=== PATIENT | male | born 1945 | race Caucasian/White ===

== ENCOUNTER 2023-12-13 16:39 | Emergency (ER) | payer MEDICARE, OTHER, SELFPAY ==
[2023-12-13 16:41] VITALS: BP 165/74
--- NOTE | 2023-12-13 16:42 | ED.GENMED ---
ED Provider Triage
<Cathy Murphy PA-C - Last Filed: 12/13/23 16:47>
-
Patient seen by provider in Triage?: Seen in Triage
Attestation: A medical screening examination has been initiated by a qualified medical provider. Based on the assessment performed at this time, it has been determined that an emergent medical condition may exist and the patient has been informed
that further medical evaluation and possible additional diagnostic testing may be needed.
HPI: 72yoM here after a fall. Tripped and fell on concrete. Arrives with multiple abrasions and c/o L great toe pain. No head injury or LOC. No blood thinners. Tdap up to date.
GENERAL: Alert , in no apparent distress
EYE: No visual abnormalities.
NECK: Trachea midline
ENT: No visible abnormalities.
LUNGS: No acute respiratory distress
NEUROLOGICAL: Alert and oriented
SKIN: Skin intact. No visible changes.
MUSCULOSKELETAL: Moving extremities normally
PSYCH: Normal and appropriate interaction.
This is a medical evaluation conducted in person to initiate diagnostic evaluation and provide initial therapeutics. Please see further documentation by the treating clinician.
L foot and great toe x-rays ordered.
History of Present Illness
<Cathy Murphy PA-C - Last Filed: 12/13/23 16:47>
General
Chief Complaint: Fall
Time Seen by Provider: 12/13/23 17:31
<Isaac Barry Jr., PA-C - Last Filed: 12/13/23 18:44>
General
Source: patient and spouse
Exam Limitations: none
Nursing documentation reviewed up to this point in time: agreed with
History of Present Illness
History of Present Illness:
78-year-old male past medical history of heart disease hyperlipidemia hypertension presented to the emergency department after trip on concrete hitting his left toe and knees bilaterally as well as his left hand. Denies any loss of consciousness or
any head trauma. Not on blood thinners. denies numbness weakness or additional concerns
Past History
<Cathy Murphy PA-C - Last Filed: 12/13/23 16:47>
Past History
ED Past Medical History: HTN
ED Past Surgical History: Orthopedic (Left hip surgery)
Social History
Tobacco: Non-smoker
Alcohol: None
Drug: None
Personal:
Living: with family
Review of Systems
<Isaac Barry Jr., PA-C - Last Filed: 12/13/23 18:44>
Review of Systems
Allergies reviewed?: Yes
All Other Systems: ROS reviewed and negative except as documented in HPI and ROS
Phy Exam
<Isaac Barry Jr., PA-C - Last Filed: 12/13/23 18:44>
Physical Exam
Physical Exam:
GENERAL: Alert , in no apparent distress
EYE: pupils equal and reactive
NECK: Supple, no significant adenopathy.
ENT: o/p clr, mmm.
CARDIAC: Regular rate and rhythm .
LUNGS: Clear breath sounds bilaterally, no acute respiratory distress, no wheezes/rales/rhonchi
ABDOMEN: Soft, without focal tenderness, no r/g, no cvat
NEUROLOGICAL: Alert and oriented, no focal neuro deficits
SKIN: Warm and dry, skin intact.
MUSCULOSKELETAL: Swelling discomfort to the left second toe superficial abrasions to the knees bilaterally as well as the left hand but otherwise good range of motion and strength no bony tenderness, well perfused.
PSYCH: Normal and appropriate interaction.
Course
<Cathy Murphy PA-C - Last Filed: 12/13/23 16:47>
Orders/Labs/Results
Orders:
Orders
12/13/23 16:45
CR Foot - Left Min 3 Views Urgent
Comment:
Reason For Exam: great toe pain
CR Toe(s) Min 2 Vw Left Urgent
Comment:
Reason For Exam: great toe pain
12/13/23 18:24
boot [Ortho Boot Left- Treatment] ONCE
Short or tall?: Short
12/13/23 18:25
Cephalexin Monohydrate [Keflex] 500 mg PO NOW STA
Tetanus/Diphth/Acelpertussis [Adacel] 0.5 ml IM .ONCE ONE
Vital Signs
Initial and Last Documented VS:
Initial Vital Signs
Temp Pulse Resp BP Pulse Ox
98.4 F 56 18 165/74 98
12/13/23 16:41 12/13/23 16:41 12/13/23 16:41 12/13/23 16:41 12/13/23 16:41
Last Documented Vital Signs
Temp Pulse Resp BP Pulse Ox
98.4 F 56 18 165/74 98
12/13/23 16:41 12/13/23 16:41 12/13/23 16:41 12/13/23 16:41 12/13/23 16:41
<Isaac Barry Jr., MAX - Last Filed: 12/13/23 18:44>
Orders/Labs/Results
Orders:
Orders
12/13/23 16:45
CR Foot - Left Min 3 Views Urgent
Comment:
Reason For Exam: great toe pain
CR Toe(s) Min 2 Vw Left Urgent
Comment:
Reason For Exam: great toe pain
12/13/23 18:24
boot [Ortho Boot Left- Treatment] ONCE
Short or tall?: Short
12/13/23 18:25
Cephalexin Monohydrate [Keflex] 500 mg PO NOW STA
Tetanus/Diphth/Acelpertussis [Adacel] 0.5 ml IM .ONCE ONE
Vital Signs
Initial and Last Documented VS:
Initial Vital Signs
Temp Pulse Resp BP Pulse Ox
98.4 F 56 18 165/74 98
12/13/23 16:41 12/13/23 16:41 12/13/23 16:41 12/13/23 16:41 12/13/23 16:41
Last Documented Vital Signs
Temp Pulse Resp BP Pulse Ox
98.4 F 56 18 165/74 98
12/13/23 16:41 12/13/23 16:41 12/13/23 16:41 12/13/23 16:41 12/13/23 16:41
<Isaac Barry Jr., PA-C - Last Filed: 12/13/23 18:44>
MDM/Problems Addressed
MDM/Problems Addressed:
78-year-old male presenting to the emergency department after mechanical fall. Patient was found to have a broken great toe on the left side this was leah taped and was given a [place] shoe and advised for close outpatient follow-up. Otherwise
he had multiple abrasions was given a tetanus shot as well as prophylactic antibiotics and areas were cleaned thoroughly and bandaged. Otherwise stable for outpatient management return precautions given.
<Isaac Barry Jr., PA-C - Last Filed: 12/13/23 18:44>
*Critical Care Note
Total Time (30-74mins, 75-104mins- exclusive of procedures): Not Applicable
ED Attending Note
<Cathy Murphy PA-C - Last Filed: 12/13/23 16:47>
-
Portions of this chart may have been created with voice recognition software.� Occasional wrong word or��sound alike� substitutions may have occurred due to the inherent limitations of voice recognition software.
Discharge Plan
Departure
Patient Disposition: Home (Routine Discharge)
Date of Disposition: 12/13/23
Time of Disposition: 18:42
Patient with high blood pressure during this ER visit?: No
Condition: Good
Covid-19: Not Applicable
Discharge Problem:
Fracture of toe, Superficial abrasion
Instructions: Toe Fracture ED
Prescriptions:
New
cephalexin 500 mg capsule
500 mg PO TID 3 Days Qty: 9 0RF
No Action
Aspirin Low (Enteric Coated):
81 mg PO DAILY
Atorvastatin
40 mg PO DAILY
Carvedilol
3.125 mg PO BID
Valsartan
40 mg PO DAILY
Referrals:
Floyd Quach CRNP [Family Provider] -
Domo Alvares DPM [Specified Professional Personl] - Follow up in 5-7 days
Activity Restrictions/Additional Instructions:
You came to the emergency department today with concerns after a fall. You are found to have a broken toe please wear the boot and follow-up closely with the foot doctor. Otherwise keep the areas of abrasion cleaned. Return to the emergency
department any worsening, new or concerning symptoms. Please take the prophylactic antibiotics as well.
Interventions
Interventions:
*Risk Screen - Suicide Last Done: 12/13/23 16:41
*General Assessment Last Done: 12/13/23 16:41
*Neglect/Abuse Screening Last Done: 12/13/23 16:41
*ED COVID-19 Vaccine History Last Done: 12/13/23 16:41
ED-Musculoskeletal Assessment Last Done: 12/13/23 17:06
ED- Neurological Assessment Last Done: 12/13/23 17:06
ED-Skin Assessment Last Done: 12/13/23 17:06
Discharge Date and Time
Print Language: SYRIAC
[2023-12-13] MEDS: KEFLEX 500 MG PO (18:52)
[2023-12-13] MEDS: ADACEL 0.5 ML IM (18:54)
[2023-12-13 19:07] VITALS: BP 134/66
== END 2023-12-13 19:08 | disposition home or self-care (01) ==
LOC: EMR 16:39
PROVIDERS: EMERGENCY PHYSICIAN Emergency Medicine; FAMILY PHYSICIAN Nurse Practitioner Family
DX: M79.675 Pain in left toe(s) (principal); S92.415A Nondisplaced fracture of proximal phalanx of left great toe, initial encounter for closed fracture; S80.212A Abrasion, left knee, initial encounter; S80.211A Abrasion, right knee, initial encounter; W01.0XXA Fall on same level from slipping, tripping and stumbling without subsequent striking against object, initial encounter; Z23 Encounter for immunization; I10 Essential (primary) hypertension; E78.00 Pure hypercholesterolemia, unspecified
CPT/HCPCS: 99283; 90471; 73630; 73660; 90715

== ENCOUNTER → 2024-05-14 10:09 | Outpatient (REF) | payer MEDICARE, OTHER, SELFPAY ==
[2024-05-14 16:08] LABS: % Basophils 0.3 % (0-2); % Eosinophils 4.5 % (0-6); % Immature Granulocytes 0.3 % (0-0.5); % Lymphocytes 17.4 % (20.5-51.1); % Monocytes 6.6 % (1.7-9.3); % Neutrophils 70.9 % (42.2-75.2); Absolute Eosinophils 0.3 10^3/uL (0-0.7); Absolute Monocytes 0.4 10^3/uL (0.1-0.6); Absolute Neutrophils 4.1 10^3/uL (1.4-6.5); Hematocrit 47.5 % (39.0-52.0); Mean Corp Hgb Conc. 33.7 g/dL (33.0-37.0); Mean Corpuscular Hgb 32.2 pg (27.0-31.0); Mean Corpuscular Volume 95.6 fL (80.0-94.0); Mean Platelet Volume 11.8 fL (7.4-10.4); Nucleated Red Blood Cells % 0 % (-); Platelet Count 113 10^3/uL (130-400); Red Blood Cell Count 4.97 10^6/uL (4.70-6.10); Red Cell Dist. Width 13.2 % (11.5-14.5); White Blood Cell Count 5.8 10^3/uL (4.8-10.8)
[2024-05-14 16:10] LABS: ALT (SGPT) 23 U/L (0-50); AST (SGOT) 23 U/L (17-59); Alkaline Phosphatase 90 U/L (38-126); Blood Urea Nitrogen 21 mg/dl (9-20); Calcium 9.2 mg/dl (8.4-10.2); Carbon Dioxide 25 mmol/L (22-30); Chloride 107 mmol/L (98-107); Glucose 115 mg/dl (70-99); Potassium 4.6 mmol/L (3.5-5.1); Sodium 139 mmol/L (135-145); Total Bilirubin 1.1 mg/dl (0.2-1.3); Total Protein 6.3 g/dl (6.3-8.2); eGFR > 60.00
[2024-05-14 16:14] LABS: Urine Albumin Negative (Neg - Trace); Urine Bilirubin Negative (Negative); Urine Character Clear (Clear); Urine Color Yellow; Urine Glucose Negative (Negative); Urine Ketone Negative (Negative); Urine Leukocyte Negative (Negative); Urine Nitrite Negative (Negative); Urine Occult Blood 1+ (Negative); Urine Specific Gravity 1.015 (<1.030); Urine Urobilinogen Negative (Neg - 1+)
[2024-05-14 16:27] LABS: Urine Red Blood Cell 0-2 /HPF (0-2); Urine Squamous Cell 0-2 /LPF (Few); Urine White Cell 0-2 /HPF (0-5)
[2024-05-14 16:59] LABS: Vitamin B12 533 pg/ml (239-931)
[2024-05-17 11:35] LABS: Lyme Antibody Screen, EIA Negative (Negative)
== END ==
LOC: HWLAB 10:09
PROVIDERS: ATTENDING PHYSICIAN Nurse Practitioner Family
DX: R41.3 Other amnesia (principal)
CPT/HCPCS: 36415; 80053; 81003; 81015; 82607; 84443; 85025; 86618

== ENCOUNTER → 2024-08-02 11:58 | Outpatient (REF) | payer MEDICARE, OTHER, SELFPAY ==
[2024-08-02 15:55] LABS: % Basophils 0.3 % (0-2); % Eosinophils 3.5 % (0-6); % Immature Granulocytes 0.4 % (0-0.5); % Lymphocytes 20.1 % (20.5-51.1); % Monocytes 7.4 % (1.7-9.3); % Neutrophils 68.3 % (42.2-75.2); Absolute Eosinophils 0.2 10^3/uL (0-0.7); Absolute Lymphocytes 1.4 10^3/uL (1.2-3.4); Absolute Monocytes 0.5 10^3/uL (0.1-0.6); Absolute Neutrophils 4.7 10^3/uL (1.4-6.5); Hematocrit 44.5 % (39.0-52.0); Hemoglobin 15.3 g/dL (13.0-18.0); Mean Corp Hgb Conc. 34.4 g/dL (33.0-37.0); Mean Corpuscular Hgb 32.6 pg (27.0-31.0); Mean Corpuscular Volume 94.7 fL (80.0-94.0); Mean Platelet Volume 11.2 fL (7.4-10.4); Nucleated Red Blood Cells % 0 % (-); Platelet Count 123 10^3/uL (130-400); Red Cell Dist. Width 12.8 % (11.5-14.5); White Blood Cell Count 6.9 10^3/uL (4.8-10.8)
[2024-08-02 16:10] LABS: ALT (SGPT) 20 U/L (0-50); AST (SGOT) 19 U/L (17-59); Albumin 4.3 g/dl (3.5-5.0); Alkaline Phosphatase 99 U/L (38-126); Blood Urea Nitrogen 33 mg/dl (9-20); Calcium 9.4 mg/dl (8.4-10.2); Carbon Dioxide 26 mmol/L (22-30); Chloride 111 mmol/L (98-107); Glucose 95 mg/dl (70-99); LDH 187 U/L (120-246); Potassium 4.3 mmol/L (3.5-5.1); Sodium 143 mmol/L (135-145); Total Bilirubin 0.8 mg/dl (0.2-1.3); Total Protein 6.4 g/dl (6.3-8.2); Uric Acid 5.6 mg/dl (3.5-8.5); eGFR > 60.00
== END ==
LOC: HWLAB 11:58
PROVIDERS: ATTENDING PHYSICIAN Internal Medicine; FAMILY PHYSICIAN Nurse Practitioner Family
DX: C83.18 Mantle cell lymphoma, lymph nodes of multiple sites (principal)
CPT/HCPCS: 36415; 80053; 83615; 84550; 85025

== ENCOUNTER → 2024-09-28 10:34 | Outpatient (REF) | payer MEDICARE, OTHER, SELFPAY ==
[2024-09-28 12:25] LABS: HDL Cholesterol 75 mg/dl; LDL Cholesterol, Calculated 69 mg/dl; Very Low Density Lipoprotein 13 mg/dl (0-30)
[2024-09-28 13:17] LABS: Glycohemoglobin (HgbA1c) 5.0 % (4.0-5.6)
[2024-09-28 15:04] LABS: Folate 7.4 ng/ml (2.76-20); Vitamin B12 589 pg/ml (239-931)
[2024-10-01 01:38] LABS: Arsenic, Blood <10.0 ug/L (<=12.0); Lead - Venous <2.0 ug/dL (<=3.4); Mercury, Blood <2.5 ug/L (<=10.0)
== END ==
LOC: REG 10:34
PROVIDERS: ATTENDING PHYSICIAN Nurse Practitioner Family; OTHER PHYSICIAN Psychiatry & Neurology Neurology
DX: R73.01 Impaired fasting glucose (principal); E78.00 Pure hypercholesterolemia, unspecified; R41.3 Other amnesia
CPT/HCPCS: 36415; 80061; 82175; 82607; 82746; 82784; 83036; 83521; 83655; 83825; 84155; 84165; 84425; 86255; 86334; 86618; 86780; 87389

== ENCOUNTER → 2024-12-24 07:28 | Outpatient (REF) | payer MEDICARE, OTHER, SELFPAY | LOC: HWRCS 07:28 | PROVIDERS: ATTENDING PHYSICIAN Internal Medicine Cardiovascular Disease; FAMILY PHYSICIAN Nurse Practitioner Family | DX: R06.02 Shortness of breath (principal) | CPT/HCPCS: 78452; 93017; A9500 ==

== ENCOUNTER → 2025-01-09 14:38 | Outpatient (REF) | payer MEDICARE, OTHER, SELFPAY | LOC: HWRCS 14:38 | PROVIDERS: ATTENDING PHYSICIAN Internal Medicine Cardiovascular Disease; FAMILY PHYSICIAN Nurse Practitioner Family | DX: I42.9 Cardiomyopathy, unspecified (principal) | CPT/HCPCS: 93306 ==

== ENCOUNTER 2025-01-29 09:00 | Day surgery (SDC) | payer MEDICARE, OTHER, SELFPAY ==
[2025-01-29] VITALS (17 sets, daily range): BP systolic 81–140; BP diastolic 46–111; BMI 27.5; BMI 26.5
[2025-01-29 09:40] LABS: Hematocrit 46.3 % (39.0-52.0); Hemoglobin 15.7 g/dL (13.0-18.0); Mean Corp Hgb Conc. 33.9 g/dL (33.0-37.0); Mean Corpuscular Volume 96.1 fL (80.0-94.0); Platelet Count 120 10^3/uL (130-400); Red Cell Dist. Width 12.5 % (11.5-14.5)
[2025-01-29 09:43] LABS: INR 1.14; PT 14.7 Sec (11.4-14.6)
[2025-01-29 09:44] LABS: APTT 31.0 Sec (23.4-35.0)
[2025-01-29 09:47] LABS: Blood Urea Nitrogen 23 mg/dl (9-20); Calcium 9.0 mg/dl (8.4-10.2); Carbon Dioxide 27 mmol/L (22-30); Chloride 106 mmol/L (98-107); Estimated Creatinine Clearance 63 ml/min; Glucose 103 mg/dl (70-99); Potassium 4.3 mmol/L (3.5-5.1); Sodium 139 mmol/L (135-145); eGFR > 60.00
[2025-01-29] MEDS: NSS 252 ML IV (10:08)
[2025-01-29] MEDS: LOW STRENGTH ASPIRIN 324 MG PO (10:09)
--- NOTE | 2025-01-29 14:07 | ITS.CL.CATH ---
Housekeeper Caregiver - Catheterization
Cardiac Catheterization
Procedure Report:
RIGHT AND LEFT HEART CATHETERIZATION
Date of Procedure: January 29, 2025
Referring: Dr. Kee Brownlee
PROCEDURES:
1. Right heart catheterization
2. Left heart catheterization with coronary and single-plane left ventriculography
INDICATION: This is a 79-year-old gentleman with a past medical history notable for an ischemic cardiomyopathy secondary to a chronically occluded mid right coronary artery. He has a history of mantle cell cancer and is chronically maintained on
Calquence. His daughter is an oncologist who works with [facility] and reports that his mantle cell tumor has been quite stable. The family has noted a decline in functional capacity and a stress study was notable for a fall in
LVEF
ACCESS: Right radial artery, 6 Fr sheath and right brachial vein, 5 Fr sheath
HEMODYNAMICS : (mmHg)
RA (m) : 5
RV (s/d,m) : 26/2, 7
PA (s/d, m) : 27/7, 15
PCWP (m) : 10
AO (s/d) : 117/55, 77
LV (s/d) : 127/4
LVEDP : 12
Cardiac Output : 4.8 L/min and cardiac Index : 2.4 L/min/m-2
Systemic vascular resistance: 15 Wood units or 1200 [id number]-[id number]-fq(-5)
Pulmonary vascular resistance: 1.0 Wood units or 80 [id number]-[id number]-xz(-5)
CORONARY FINDINGS
DOMINANCE: Right
LEFT MAIN: Shelflike 80% distal left main stenosis involving the origins of the LAD and circumflex
LEFT ANTERIOR DESCENDING: The LAD arises normally from the left main and runs in the anterior interventricular groove. The ostial LAD has a 50% stenosis. The LAD is moderately calcified and has minor irregularities over its course. The LAD
supplies a large first diagonal branch and medium caliber second diagonal branch which are widely patent
CIRCUMFLEX: The circumflex is a medium caliber nondominant vessel with an acute origin from the left main and 60% ostial stenosis
RIGHT CORONARY ARTERY: The right coronary artery is a dominant vessel that has been 100% occluded in its midportion since the last angiogram from 2009. The distal vessel fills via [id number]-xf-jlvdd collaterals.
VENTRICULOGRAPHY: Left ventriculography is performed in an [place] projection. The digital single-plane left ventricular ejection fraction is visually estimated at 30-35%. There is posterobasal to mid diaphragmatic severe hypokinesis and moderate
global hypokinesia
SEDATION: 47 minutes of procedural sedation was utilized. An independent medical insurance clerk was present to assist with and help manage the patient's level of consciousness and physiologic status.
RADIATION SUMMARY: Fluoro Time (min): 3.8, Dose (mGy): 416, DAP (Gy.cm2) : 28.1
Closure Device: TR band
CONCLUSIONS
1. Multivessel coronary artery disease with shelfllike 80% distal left main stenosis involving the origins of the LAD and circumflex and 100% chronically occluded mid RCA
2. Moderately reduced LV systolic function with an estimated ejection fraction of 30-35%
RECOMMENDATIONS
1. Consult CT surgery to consider coronary artery bypass grafting.
2. If the patient is not felt to be a surgical candidate then would consider Impella assisted high risk coronary intervention of the left [id number]
Copy to: Dr. Kee Brownlee
--- NOTE | 2025-01-29 15:00 | PTCARENOTE ---
since pt has been brought out to seed analysis laboratory assistant recovery radial chongunge after card cath his heart rate drops to 34 and then back up to 55. pt rhythm is nsr w PVC's . pt only complaint is grumbling in stomach . no light headedness , no dizziness. pt did
eat some crackers and drink gingerale . notified Gayle Hopkins TOOL MACHINIST reguarding heart rate. also pt has runs of bigeminy ,which Gayle Hopkins is also aware . and states as long as he is feeling well and asymptomatic continue plans for discharge.
--- NOTE | 2025-01-29 15:48 | PTCARENOTE ---
at 1521 pts bp continues to be low at 81/48. pt asymptomatic . pt laid flat in recliner. bolus of 500 cc of fluid given per jodee brown. no further treatment . pt bp back up to 119/53 at 1540
== END 2025-01-29 16:45 | disposition home or self-care (01) ==
LOC: CATH 09:00
PROVIDERS: ATTENDING PHYSICIAN Internal Medicine Interventional Cardiology; FAMILY PHYSICIAN Nurse Practitioner Family; OTHER PHYSICIAN Internal Medicine Cardiovascular Disease
DX: I25.10 Atherosclerotic heart disease of native coronary artery without angina pectoris (principal); I25.5 Ischemic cardiomyopathy; Z85.72 Personal history of non-Hodgkin lymphomas; I10 Essential (primary) hypertension; E78.00 Pure hypercholesterolemia, unspecified; Z79.82 Long term (current) use of aspirin; Z79.899 Other long term (current) drug therapy
CPT/HCPCS: 99152; 99153; 80048; 85027; 85610; 85730; 93460; C1769; C1894; Q9967

== ENCOUNTER → 2025-02-09 09:49 | Outpatient (REF) | payer MEDICARE, OTHER, SELFPAY | LOC: RAD 09:49 | PROVIDERS: ATTENDING PHYSICIAN Thoracic Surgery (Cardiothoracic Vascular Surgery); FAMILY PHYSICIAN Nurse Practitioner Family | DX: I25.10 Atherosclerotic heart disease of native coronary artery without angina pectoris (principal); I25.5 Ischemic cardiomyopathy | CPT/HCPCS: 71250 ==

== ENCOUNTER 2025-02-12 05:08 | Inpatient (IN) | payer MEDICARE, OTHER, SELFPAY ==
[2025-02-07 12:09] VITALS: BMI 28.2
[2025-02-07 13:00] LABS: Urine Character Clear (Clear)
[2025-02-07 13:04] LABS: Hematocrit 45.9 % (39.0-52.0); Hemoglobin 15.6 g/dL (13.0-18.0); Mean Corp Hgb Conc. 34.0 g/dL (33.0-37.0); Mean Corpuscular Volume 96.8 fL (80.0-94.0); Nucleated Red Blood Cells % 0 % (-); Platelet Count 134 10^3/uL (130-400); Red Cell Dist. Width 12.3 % (11.5-14.5)
[2025-02-07 13:08] LABS: INR 1.14; PT 14.4 Sec (11.4-14.6)
[2025-02-07 13:14] LABS: Urine White Cell 0-2 /HPF (0-5)
[2025-02-07 13:39] LABS: ALT (SGPT) 25 U/L (0-50); AST (SGOT) 24 U/L (17-59); Albumin 4.4 g/dl (3.5-5.0); Alkaline Phosphatase 73 U/L (38-126); Blood Urea Nitrogen 26 mg/dl (9-20); Calcium 9.4 mg/dl (8.4-10.2); Carbon Dioxide 27 mmol/L (22-30); Chloride 104 mmol/L (98-107); Estimated Creatinine Clearance 54 ml/min; Glucose 91 mg/dl (70-99); Potassium 4.6 mmol/L (3.5-5.1); Sodium 137 mmol/L (135-145); Total Protein 6.8 g/dl (6.3-8.2); eGFR > 60.00
[2025-02-07 14:08] LABS: Glycohemoglobin (HgbA1c) 5.1 % (4.0-5.9)
--- NOTE | 2025-02-07 16:00 | CM ---
spoke to pt in PAT's, we discussed preop CABG teaching including sternal and driving restrictions. he is prev indep, lives with his in a 2 story home with 3 steps to enter. he has the CT Surgery educ book, soap and instructions. he is agreeable
to a f/u visit from the ct transitional care nurse after dc. plan is for CABG 02/12, cm role explained and all questions answered.
[2025-02-12] VITALS (15 sets, daily range): BP systolic 86–118; BP diastolic 49–70; BMI 27.4
--- NOTE | 2025-02-12 06:26 | W.CVOR.SURPR ---
CVOR Surgeon Immed Pre Op
-
I have examined this patient prior to performance of the scheduled procedure.
The patient's condition is unchanged from the time of the dictated/written History and
Physical and the patient is able to undergo the scheduled procedure.
Low EF CABG + LAAE
[2025-02-12] MEDS: PROTONIX 40 MG PO (06:41)
[2025-02-12] MEDS: LOPRESSOR 25 MG PO (06:41)
[2025-02-12] MEDS: BACTROBAN 2% OINTMENT 1 APPLIC NASAL ×2 (06:41→20:04)
[2025-02-12] MEDS: MAGNESIUM OXIDE 400 MG PO (06:41)
[2025-02-12 07:59] LABS: ACT+ - POC 156 Seconds (82-134)
[2025-02-12 08:31] LABS: Urine Character Clear (Clear)
[2025-02-12 08:45] LABS: Urine White Cell 0-2 /HPF (0-5)
[2025-02-12 09:30] LABS: B.E. - POC -0.2 mmol/L; Glucose - POC 95 mg/dl (70-99); HCO3 - POC 25 mmol/L (21-28); Hematocrit - POC 40 % PCV (42-52); Hemodilution- POC Yes; Hemoglobin Calculated - POC 13.4; Ionized Calcium - POC 1.14 mmol/L (1.15-1.33); Lactate - POC 0.44 mmol/L (0.36-0.75); O2 Saturation %Calculated-POC 100.0 % (94-98); PCO2 - POC 40 mmHg (35-48); PO2 - POC 454 mmHg (83-108); Potassium - POC 4.0 mmol/L (3.5-5.1); Sodium - POC 143 mmol/L (136-145); Specimen Type - POC Arterial; pH - POC 7.40 (7.35-7.45)
[2025-02-12 09:43] LABS: ACT+ - POC > 1003 Seconds (82-134)
[2025-02-12 09:54] LABS: B.E. - POC 2.7 mmol/L; Glucose - POC 79 mg/dl (70-99); HCO3 - POC 26 mmol/L (21-28); Hematocrit - POC 31 % PCV (42-52); Hemodilution- POC Yes; Hemoglobin Calculated - POC 10.6; Ionized Calcium - POC 0.96 mmol/L (1.15-1.33); Lactate - POC 0.58 mmol/L (0.36-0.75); O2 Saturation %Calculated-POC 99.9 % (94-98); PCO2 - POC 33 mmHg (35-48); PO2 - POC 311 mmHg (83-108); POC Comment CPB; Potassium - POC 4.7 mmol/L (3.5-5.1); Sodium - POC 139 mmol/L (136-145); Specimen Type - POC Arterial; pH - POC 7.50 (7.35-7.45)
[2025-02-12 10:11] LABS: ACT+ - POC 891 Seconds (82-134)
[2025-02-12 10:17] LABS: B.E. - POC 3.0 mmol/L; Glucose - POC 92 mg/dl (70-99); HCO3 - POC 27 mmol/L (21-28); Hematocrit - POC 32 % PCV (42-52); Hemodilution- POC Yes; Hemoglobin Calculated - POC 10.9; Ionized Calcium - POC 1.05 mmol/L (1.15-1.33); Lactate - POC 0.73 mmol/L (0.36-0.75); O2 Saturation %Calculated-POC 99.9 % (94-98); PCO2 - POC 36 mmHg (35-48); PO2 - POC 315 mmHg (83-108); POC Comment CPB; Potassium - POC 4.7 mmol/L (3.5-5.1); Sodium - POC 140 mmol/L (136-145); Specimen Type - POC Arterial; pH - POC 7.48 (7.35-7.45)
--- NOTE | 2025-02-12 10:26 | CM ---
pt in OR today, cm to follow
[2025-02-12] MEDS: ANCEF 10 IV ×2 (10:35)
[2025-02-12 10:36] LABS: ACT+ - POC 977 Seconds (82-134)
[2025-02-12 10:37] LABS: B.E. - POC 2.0 mmol/L; Glucose - POC 108 mg/dl (70-99); HCO3 - POC 26 mmol/L (21-28); Hematocrit - POC 33 % PCV (42-52); Hemodilution- POC Yes; Hemoglobin Calculated - POC 11.4; Ionized Calcium - POC 1.05 mmol/L (1.15-1.33); Lactate - POC 0.95 mmol/L (0.36-0.75); O2 Saturation %Calculated-POC 99.9 % (94-98); PCO2 - POC 37 mmHg (35-48); PO2 - POC 316 mmHg (83-108); POC Comment WARM; Potassium - POC 4.9 mmol/L (3.5-5.1); Sodium - POC 141 mmol/L (136-145); Specimen Type - POC Arterial; pH - POC 7.46 (7.35-7.45)
[2025-02-12 10:43] LABS: ACT+ - POC 142 Seconds (82-134)
--- NOTE | 2025-02-12 11:21 | W.PN.CT.SURG ---
CT Surgery Operative Note
-
CARDIAC SURGERY OPERATIVE REPORT
Preoperative Diagnosis: Multivessel Coronary Artery Disease with low ejection fraction secondary to ischemic cardiomyopathy
Postoperative Diagnosis: Same
Procedure(s) Performed:
1. Standard Sternotomy with Aortic and Right Atrial Cannulation
2. Internal Mammary Artery Harvesting, Left
3. Coronary artery bypass grafting x 3 (In situ GUSMAN to LAD, Ao to RSVG to OM, Ao to RSVG to RPDA)
4. Endoscopic vein harvesting of right lower extremity
5. Transesophageal echocardiography
6. Placement of Temporary Ventricular Pacing Wires
7. Left atrial appendage exclusion [35 mm device, serial #[id number]]
8. Transonic Flowprobe assessment of all grafts
Date of Surgery: 02/12/2025
Comorbidities:
1. Multivessel coronary artery disease
2. Acute on chronic ischemic cardiomyopathy with EF of 30% with recent history of EF of 45%
3. Exertional angina equivalent
4. Hyperlipidemia
5. Hypertension
6. Mantle cell lymphoma on chronic suppressive therapy
7. Osteoarthritis
8. Mild cognitive disorder
Attending Surgeon: Min Bassett MD, MS
Assistants: Suraj Cline PA-C (present and necessary to ortho assistant, retraction, suction, exposure, suture management, and wound closure under my direction), Hellen Elkisn PA-C (endoscopic vein harvest and closure)
Anesthesiology: Lm Santana MD and Sophia Suazo CRNA
Scrub and Circulating RNs: Zo Tenorio, JOE, Patricia Manzo RN
Commercial Designer: Cassidy Rodriguez CCP
Anesthesia: GETA
EBL: per perfusion records
Products: None
CPB Time: 66 minutes
Aortic Cross Clamp Time: 51 minutes
Indication(s) for Procedures: This is a 79-year-old male with 2 as recently had a decline in his left ventricular ejection fraction on a cardiac stress test. He is very functional and very active for his age and has been experiencing worsening
anginal cloven type symptoms. Multidiscipline team discussion between interventional cardiology as well as his outpatient ager operator came to the conclusion that surgical revascularization of all territories would be best. He understands that
with his mantle cell lymphoma and his preoperative medications he is at slightly higher risk for bleeding and perioperative complications. Ultimately share decision making between the patient and his physicians was to move forward with surgical
intervention.
Conduit(s) Quality:
GUSMAN -excellent
RSVG -excellent, some portions of it were thin but overall decent caliber and quality
Target(s) Quality:
RCA/PDA -good, the smallest of the targets had a mean flow of approximately 30 cc a minute at a pressure 80 mmHg, Transonic flow probe assessment of the graft yielded a mean flow of 9 with with a pulsatility index of 5.8
OM -good, small vessel but overall had a mean flow of approximately 15 cc a minute at a pulsatility index of 2.1.
LAD -excellent, large size target coming a 2 mm probe, mean flow on assessment was 18 cc a minute with a pulse index of 4.0
Findings: His left ventricular ejection fraction preoperatively was 30% with global hypokinesis. He had of severely dilated left atrium with no significant mitral valve insufficiency, surprisingly. Following surgery his EF remained the same at 30
to 35% on 5 of Dobutrex. There were no new regional wall motion abnormalities. The GUSMAN was harvested in a skeletonized fashion. Following bypass grafting, test dose cardioplegia was given down each distal and confirmed patency and hemostasis.
Each graft was also interrogated with a transonic flow probe device. At the conclusion of the case he was in sinus rhythm in the 40s to 50s which was what he was at baseline. Did not require any blood products. And was on 5 of dobutamine for
preemptive support.
Description of Procedure: The patient was taken to the operating room. Their identity and procedure to be performed were verified and they were positioned supine on the operating table. Induction via general anesthesia with endotracheal intubation
was performed and central venous access and arterial monitoring were inserted. A preoperative transesophageal echocardiogram was performed to assess cardiac function and valvular function. The patient was then prepped and draped from chin to feet in
a sterile fashion. A preoperative time-out was performed with all members of the team present. A midline chest incision was performed along with median sternotomy. Simultaneous endoscopic access of the right lower extremity for saphenous vein
harvest was obtained along with administration of an initial 5,000 units of IV heparin. A RulTract sternal retractor was positioned to exposure the left internal mammary bed. The mammary was harvested and found to have good flow. A bulldog clamp was
applied to the distal end of the mammary after dividing it. It was wrapped in a papaverine soaked RayTec and replaced back into the left hemithorax. The RulTract was exchanged for a median sternal retractor. The innominate vein was isolated. Full
heparinization was given (a total of 50,000 units). We created a pericardial well. The aortic cannulation site was chosen where it was soft, pliable, and free of calcium. Cannulation was performed with an arterial cannula in the ascending aorta and
a triple-stage venous cannula through the right atrial appendage. The arterial cannula line had an appropriate bounce and correlating pressures with test dosing. Next, a root vent/antegrade cannula was inserted into the ascending aorta. The ACT was
confirmed to be over 400 and retrograde autologous priming was performed before commencing cardiopulmonary bypass. The pulmonary artery was away from the aorta to facilitate a clamp site. The aortic cross-clamp was placed after decreasing
the flow on the bypass and mean arterial pressure. A total of 1.2L initial dose of antegrade Del-Nido cardioplegia solution was given and planned for re-dosing every 75 minutes as necessary. There was rapid electro-mechanical arrest of the heart at
400 cc of cardioplegia. The left ventricle was observed for distention on echocardiogram and manual palpation. Cold slush was placed into a sponge and topically on the RV while we systemically cooled to 34 degrees centigrade. Once the heart was
fully arrested was rotated to medially and the left atrial appendage was sized to a 35mm device and clipped flush to the base.
I positioned the heart to expose the distal right coronary at the posterior descending artery. A pyramid lake blade was used to expose the coronary and perform the arteriotomy. Coronary De La Cruz scissors were used to enlarge the incision. The saphenous vein
was trimmed and beveled to an appropriate size. The distal anastomosis was performed using 7-0 prolene in an end-to-side fashion. Antegrade cardioplegia was administered into the graft. Appropriate hemostasis and flow were confirmed. The graft was
measured for length to the aorta and cut. A suitable site on the obtuse marginal was chosen. We dissected and prepared the distal target in a similar fashion. An end-to-side anastomosis was created with a 7-0 prolene. Antegrade cardioplegia was
administered into the graft. Appropriate hemostasis and flow were confirmed. The graft was measured for length to the aorta and cut. A suitable target on the mid/distal left anterior descending was identified. We dissected and prepared the distal
target in a similar fashion. We retrieved the GUSMAN from the chest and created a pericardial opening while being cognizant of the phrenic nerve to facilitate the course of the mammary. The distal end of the mammary was prepped. We verified
orientation and length of the NORA and found brisk flow. An jhmj-zs-gimr anastomosis was created with a 7-0 prolene. We temporarily released the bulldog clamp on the mammary to inspect flow. Perfusion to the LAD territory was visualized and
hemostasis was confirmed. The bull clamp was replaced on the mammary. The heart was filled and the root was distended with antegrade cardioplegia to make final assessment of graft length and orientation. We created 2 aortotomies using a #11 blade
then a 4.0mm aortic punch. The proximal anastomoses were created in an end-to-side fashion using 6-0 prolene. At the the same time, we re-warmed to 36.5 degrees centigrade. The bulldog clamp was removed from the mammary. Temporary bipolar
ventricular pacing wires were placed on the base of the right ventricle along with temporary atrial pacing wires as he had low left ventricular function. The patient was placed in a Trendelenburg position and flows on bypass were lowered. The aortic
cross clamp was removed and flows were slowly brought back up. All bypass grafts were inspected and were free from kinking or twisting. The distal and proximal anastomoses appeared hemostatic. Once transesophageal echocardiography appeared
satisfactory for de-airing, the flows were temporarily lowered for root vent removal. After verifying acceptable parameters, we initiated weaning from cardiopulmonary bypass. Once we were off cardiopulmonary bypass, the venous cannula was clamped
and removed. A test dose of protamine was administered and the patient was monitored for any adverse reaction before resuming protamine. Once half of the protamine dose was delivered, pump suckers were turned off and the systolic blood pressure was
lowered for aortic decannulation. The aortic cannula was removed and pursestrings were tied down. All cannulation sites were oversewn with a 4-0 prolene. The mammary bed was inspected and hemostasis was confirmed. Once the mediastinum was
hemostatic, 19Fr Sourav drain was placed in the left pleural cavity and two 24Fr Sourav drains were placed within the pericardium. The sternum was approximated with 4 #7 single and 3 #8 double stainless steel wires. Fascia was approximated with #1
vicryl suture. The subcutaneous, dermis and epidermis were closed in layers in a running fashion. The skin wound was cleansed and dressed.
All instrument, sponge, and needle counts were confirmed to be correct x 2 at the end of the operation. The patient was transferred to the cardiac intensive care unit in critical but stable condition.
I, Dr. Min Bassett, was present, scrubbed for, and performed all critical elements of this procedure.
Min Bassett MD, MS
Cardiothoracic Surgeon
[facility]
This operative dictation was created using the [employer] dictation system. Please excuse any grammatical, typographical, or 'sound alike' errors
[2025-02-12 11:22] LABS: ACT+ - POC > 1003 Seconds (82-134)
[2025-02-12 11:35] LABS: B.E. - POC -0.4 mmol/L; Glucose - POC 100 mg/dl (70-99); HCO3 - POC 25 mmol/L (21-28); Hematocrit - POC 32 % PCV (42-52); Hemodilution- POC Yes; Hemoglobin Calculated - POC 10.9; Ionized Calcium - POC 1.29 mmol/L (1.15-1.33); Lactate - POC 0.53 mmol/L (0.36-0.75); O2 Saturation %Calculated-POC 99.9 % (94-98); PCO2 - POC 42 mmHg (35-48); PO2 - POC 353 mmHg (83-108); POC Comment POST; Potassium - POC 4.2 mmol/L (3.5-5.1); Sodium - POC 142 mmol/L (136-145); Specimen Type - POC Arterial; pH - POC 7.38 (7.35-7.45)
[2025-02-12] MEDS: NEURONTIN PO ×2 (11:37→15:09)
[2025-02-12] MEDS: NSS 500 IV (11:38)
[2025-02-12] MEDS: ZOLOFT PO (11:38)
[2025-02-12 11:51] LABS: Glucose - Point of Care 106 mg/dl (70-99)
[2025-02-12 12:05] LABS: B.E. -1.1 mmol/L; HCO3 24.3 mmol/L (21-28); O2 Saturation % 98.8 % (94-98); PCO2 42 mmHg (35-48); PO2 103 mmHg (83-108); Potassium 4.1 mMOL/L (3.5-5.1); Sodium 135 mMOL/L (136-145)
--- NOTE | 2025-02-12 12:13 | W.PN.UPDATE ---
Update Note
Progress Note Update
79 year old with triple vessel coronary disease and mildly reduced EF (40-45%), was electively admitted for CABG
IV fluids: 2000
U.O.:� 500
Blood:� none (450 cell saver)
Wires:� A + V
Drips: Dobutamine @ 5, Cardene @ 2.5, Precedex 0.5, Insulin
�
NEURO: sedated, pupils +Xmm B/L
RESP: #8OT @24cm> 500/40%/14/5. Lungs clear B/L. 2 mediastinal (XXcc on arrival) and R/L pleural (XXcc on arrival) chest tubes to -20cm suction. Sanguineous drainage
CV: RRR +S1, S2, no S3, no�rub, no murmur. Dermabond to median sternotomy. RIJ w/[place] locked @ 38cm. PA 35/15; CVP 12; C.O 3.86/CI 1.98
ABD: round, soft, no BS
EXT: no edema, +2/4 DP pulses B/L, no femoral bruit, RLE CHRIS wrap intact; left radial A-line intact
: Crisostomo with clear yellow urine
�
A/P: POD #0 s/p CABG x x 3 (GUSMAN to LAD, SVG to OM, SVG to RPDA), Left atrial appendage exclusion [35 mm device]
LAZARUS: EF�30-35% on Dobutamine
- wean and extubate
- wean DTX/Cardene to maintain SBP 90-110mmHg
- insulin x 24h
# CAD
- will require ASA, plavix, statin (LIPITOR 80MG), beta-brown (COREG)
# Acute on chronic HFrEF (40% pre>30-35% post)
- may benefit from SGLT2i, ACEi vs ARB or Entresto
�
# acute surgical blood loss anemia-expected
- trend CBC
�
# Mantle cell lymphoma
- hold�Calquence�3-5 days post-op per primary oncologist
�
# Anxiety
- resume�Sertraline in am
# HTN
- HOME MEDS: Valsartan, Donepezil
[2025-02-12] MEDS: CALCIUM GLUCONATE 100 IV (12:23)
[2025-02-12 12:24] LABS: Hematocrit 39.8 % (39.0-52.0); Hemoglobin 13.6 g/dL (13.0-18.0)
[2025-02-12 12:25] LABS: Blood Urea Nitrogen 20 mg/dl (9-20); Estimated Creatinine Clearance 74 ml/min; Glucose 105 mg/dl (70-99); Magnesium 2.6 mg/dl (1.6-2.3)
[2025-02-12 12:28] LABS: INR 1.66; PT 19.8 Sec (11.4-14.6)
[2025-02-12 12:29] LABS: APTT 31.1 Sec (23.4-35.0)
[2025-02-12 12:42] LABS: Platelet Count 96 10^3/uL (130-400)
--- NOTE | 2025-02-12 12:51 | PTCARENOTE ---
Pt arrived from CV[facility] to CVICU at 1145. Pt intubated and sedated. Pt SR/SB with HR currently 60, pt with frequent PVCs. BP 102/48 MAP 65. PA 39/13, CVP 10, CO 3.86, CI 1.98, SVR 1450. Epicardial AV wires in place with rate set to 30. Core temp 96.3,
Reba hugger in place. #8ET in place at 24cm on the right. Vent set to SIMV 40% FiO2, rate 14, TV 500, PEEP 5, Pressure support 5. Pulse oximetry 98%. Oral care completed. Mediastinal chest tubes x2 and left pleural chest tube in place to -20
suction, no sign of air leak or crepitus, drainage red in color. Bowel sounds hypoactive. Crisostomo catheter in place draining yellow urine, Crisostomo care completed. Midsternal incision approximated and IT APPLICATION SUPPORT ANALYST, Right groin puncture approximated and IT APPLICATION SUPPORT ANALYST, Right
leg incision with bjorn wrap in place. Left radial Misti intact, Right IJ cordis in place with [place] at 55cm. Pt currently on Levo at 1mcg/min, Dobutamine 5mcg/kg/min, Insulin 2units/hr per glycemic protocol. Post-op EKG and x-ray obtained. Labs
collected and reviewed, iCal being replaced.
[2025-02-12 13:05] LABS: Glucose - Point of Care 109 mg/dl (70-99)
[2025-02-12] MEDS: TYLENOL PO (13:21)
[2025-02-12 14:06] LABS: Glucose - Point of Care 97 mg/dl (70-99)
[2025-02-12 15:05] LABS: Glucose - Point of Care 87 mg/dl (70-99)
[2025-02-12] MEDS: PACERONE PO (15:09)
[2025-02-12 16:12] LABS: Glucose - Point of Care 99 mg/dl (70-99)
[2025-02-12 16:15] LABS: B.E. - POC -2.6 mmol/L; Blood Urea Nitrogen - POC 19 mg/dl (3-120); Chloride - POC 111 mmol/L (96-111); Creatinine - POC 1.10 mg/dl (0.3-1.0); Glucose - POC 115 mg/dl (70-99); HCO3 - POC 23 mmol/L (21-28); Hematocrit - POC 40 % PCV (42-52); Hemodilution- POC No; Hemoglobin Calculated - POC 13.7; Ionized Calcium - POC 1.32 mmol/L (1.15-1.33); Lactate - POC 0.92 mmol/L (0.36-0.75); O2 Saturation %Calculated-POC 98.7 % (94-98); PCO2 - POC 40 mmHg (35-48); PO2 - POC 124 mmHg (83-108); Potassium - POC 4.2 mmol/L (3.5-5.1); Sodium - POC 141 mmol/L (136-145); Specimen Type - POC Arterial; pH - POC 7.36 (7.35-7.45)
--- NOTE | 2025-02-12 16:19 | PTCARENOTE ---
Pt awoke, able to follow commands. CPAP trial initiated at 1535. ABG collected and reviewed with CT DEVAUGHN, Consuelo. Pt extubated at 1615 to 6L nasal cannula. Pulse oximetry 99%. Pt able to state name and , achieving 1000 with IS. Pt remains SR/SB
with frequent PVCs. HR 62, BP 95/51 MAP 67, PA 28/11, CVP 8, CO 3.99, CI 2.05, SVR 1122. Pt off of both Levo and Cardene. Remains on Dobutamine at 5mcg/kg/min and Insulin per glycemic protocol.
--- NOTE | 2025-02-12 16:21 | CON.INTV ---
Consultation
Consultation Request
Date/Time Consultation Requested: 02/12/2025
Date/Time Consultation Performed: 02/12/2025
Medical History
-
Chief Complaint: Dyspnea with exertion
History of Present Illness:
Patient is a 79-year-old gentleman who reportedly was having some exertional dyspnea as outpatient. Workup included echocardiogram with noted decreased ejection fraction. Patient subsequently had a cardiac catheterization which was suggestive of
multivessel disease and left ventriculography showed decreased ejection fraction. Patient was subsequently referred to CT surgery service and coronary bypass surgery was advised. 02/12, patient was admitted to the hospital for coronary artery
bypass graft and postprocedure, was admitted to the CVICU. Art Instructor service was consulted for further input.
Past medical history. Coronary artery disease, hypertension, hyperlipidemia, heart failure with reduced ejection fraction, chronically occluded RCA, mantle cell lymphoma, osteoarthritis, mild cognitive deficit.
Surgical history. Bilateral hernia repair, cataract surgery, total hip replacement.
Family history. No known history of lung cancer.
Social history. Prior history of smoking, quit more than 10 years ago. Will get additional detail once patient is awake alert and able to communicate.
Allergies / Home Medications
Allergies
Allergy/AdvReac Type Severity Reaction Status Date / Time
lisinopril Allergy cough Verified 02/05/25 11:37
Home Medications
�Medication �Instructions �Recorded �Confirmed �Last Taken �Type
atorvastatin 80 mg tablet 80 mg PO HS High Cholesterol 01/28/25 02/12/25 02/11/25 21:00 History
carvedilol 3.125 mg tablet 3.125 mg PO BID Heart 01/28/25 02/12/25 02/11/25 09:00 History
Disease/Condition
valsartan 40 mg tablet 40 mg PO DAILY Blood Pressure 01/28/25 02/12/25 02/09/25 09:00 History
acalabrutinib maleate 100 mg 100 mg PO DAILY Cancer 01/29/25 02/12/25 02/04/25 09:00 History
tablet (Calquence (acalabrutinib
maleate))
acetaminophen 650 mg 650 - 1,300 mg PO Q12H PRN pain 01/29/25 02/12/25 Unknown History
tablet,extended release
cholecalciferol (vitamin D3) 25 25 mcg PO DAILY Supplement 01/29/25 02/12/25 02/04/25 09:00 History
mcg (1,000 unit) tablet (Vitamin
D3)
donepezil 10 mg tablet 10 mg PO HS Neurological Condition 01/29/25 02/12/25 02/11/25 21:00 History
zinc acetate 50 mg (zinc) capsule 50 mg PO HS Supplement 01/29/25 02/12/25 02/04/25 09:00 History
cetirizine 10 mg tablet (Zyrtec) 10 mg PO HS Allergies 02/05/25 02/12/25 02/11/25 21:00 History
mecobalamin (vitamin B12) 1,000 1,000 mcg PO HS Supplement 02/05/25 02/12/25 02/04/25 09:00 History
mcg chewable tablet (B12 Active)
sertraline 25 mg tablet 25 mg PO DAILY Mental 02/05/25 02/12/25 02/11/25 09:00 History
Health/Anxiety
thiamine HCl (vitamin B1) 1 tab PO DAILY Supplement 02/05/25 02/12/25 02/04/25 09:00 History
vitamin K2 1 tab PO DAILY Supplement 02/05/25 02/12/25 02/04/25 09:00 History
aspirin 81 mg tablet,delayed 81 mg PO DAILY Blood Clot 02/12/25 02/12/25 02/11/25 09:00 History
release Prevention/Tx
Review of Systems
-
Unable to Obtain full review of systems at this time due to: Patient Intubation
Vitals / Labs / Diagnostic Testing
Vital Signs
Temp Pulse Resp BP Pulse Ox
98.6 F 64 14 106/65 98
02/12/25 16:00 02/12/25 16:00 02/12/25 16:00 02/12/25 16:00 02/12/25 16:00
Lab Data
02/12/25 11:43
Laboratory Results
02/12/25
11:43
PT 19.8 H
INR 1.66
APTT 31.1
pH 7.37
pCO2 42
pO2 103
HCO3 24.3
O2 Delivery Level
Diagnostic Testing:
Physical Exam
-
HEENT: Normocephalic
Cardiovascular: S1/S2
Respiratory: Clear
GI: Soft and Non Distended
Neurology: Other (Starting to wake up, still drowsy.)
Skin: Warm
General: Comfortable
Assessment
-
Patient is a 79-year-old gentleman with coronary artery disease, s/p coronary artery bypass graft, left atrial appendage exclusion, POD # 0
Titrate off pressors per protocol, currently on dobutamine at 5, off Levophed. MAP of 68.
ECHO reviewed with mildly reduced ejection fraction
PA catheter readings reviewed, , mean 21
Management of chest tubes per primary service
Intubated/off sedation now, starting to wake up
Pain control
RASS goal of 0 to -1
Intubated for procedure, SBT trial when patient able to spontaneously breath
Current vent settings: SIMV with PS, 500/14/40%/5, pressure support of 5.
AB.37/42/103
CXR with possibly trace left apical pneumothorax and minor atelectasis.
Extubate per protocol
Maintain supplement oxygen as needed
No prior history of pulmonary disease
Prior PFTs reviewed, unremarkable
Can add nebulizers if needed
Aspiration precautions
Encouraged incentive spirometry, OOB/ambulation/early mobility
Advance diet as tolerated following extubation
GI prophylaxis: Protonix
Monitor critical I/O's
Crisostomo/chest tube output
Hb/platelets postoperatively, mild drift
Trend CBC for now
Can transfuse if indicated for Hb <7, plt <50 in surgical patients
DVT prophylaxis including SCDs
Insulin protocol initiated and ongoing
Transition to SQ/off as indicated per team
Other medical diagnoses:
- HFrEF, LVEF 30-35%
- Pulmonary nodules. 1-2 mm, RUL. Outpatient follow up with Pulmonary clinic, information added to discharge section.
- HTN, HLD
- H/o Smoking. Will get additional details once patient is awake and alert.
- Mantle cell lymphoma
- CAD
- Mild cognitive deficit
Critical Care time 65 mins -- The patient is admitted for acute critical illness for the treatment of vital organ failure and/or prevention of further life-threatening conditions. Total care includes time spent in review of history, physical exam,
medications, hemodynamic/ventilator parameters, laboratory data, imaging and discussion with house staff, pharmacy, respiratory therapy, food management aide, and nursing
Data:
Spirometry 01/2025: FEV1 2.70, 99% of predicted, FVC 105% predicted, FEV1/FVC of 70. Normal spirometry without evidence of obstruction or restriction.
LHC 01/2025: 1. Multivessel coronary artery disease with shelf llike 80% distal left main stenosis involving the origins of the LAD and circumflex and 100% chronically occluded mid RCA
2. Moderately reduced LV systolic function with an estimated ejection fraction of 30-35%
ECHO 12/2024: 1. Technically difficult study.
2. Normal left ventricular chamber size with mildly reduced left ventricular systolic function ejection fraction 40 to 45%. Basal to mid inferior and inferolateral akinesis.
3. Mild concentric left ventricular hypertrophy.
4. Mild mitral regurgitation.
5. Mild tricuspid regurgitation.
6. Compared to her previous echo from November 2015, EF was 50% at that time and there is now mild MR and TR.
CT Chest 01/2025: No acute pathology of the chest identified.
Severe atherosclerotic vascular disease. Mildly progressed.
Tiny solid right upper lobe pulmonary nodules. These are too small to be seen on prior PET/CT exam. The [facility] Pulmonary Nodule Advisory Board will be automatically informed of the findings.
--- NOTE | 2025-02-12 16:26 | RESPNOTE ---
16:15 extubated patient and placed on 6 liter nasal cannula
[2025-02-12 16:47] LABS: Hematocrit 42.1 % (39.0-52.0); Hemoglobin 14.4 g/dL (13.0-18.0); Platelet Count 118 10^3/uL (130-400)
[2025-02-12] MEDS: DILAUDID 0.5 MG IV (17:08)
[2025-02-12] MEDS: LOW STRENGTH ASPIRIN 81 MG PO (17:16)
[2025-02-12] MEDS: ANCEF 5 IV (17:40)
[2025-02-12 18:09] LABS: Glucose - Point of Care 105 mg/dl (70-99)
--- NOTE | 2025-02-12 18:12 | W.PN.CARDCBS ---
Today's Communication / Plan
-
Overall doing well status post CABG x 3.
Wean pressors and wean to extubate
With low EF will want to initiate GDMT for his cardiomyopathy
He has known first-degree AV block and bradycardia so we will need to watch for bradycardia. remains in sinus rhythm
Impression / Plan
-
Assess:
CAD/ischemic Cardiomyopathy EF 30-40%
s/p CABG 02/12/25, GUSMAN to LAD, saphenous vein graft to OM, saphenous vein graft to PDA, IRMA clip
Mantle cell lymphoma
Hypertension
Hyperlipidemia
Mild dementia
Echo 01/09/25:EF 40-45%, inf/inf lat akinesi, mild MR
Plan:
Overall doing well post procedure. Wean dobutamine and Levophed to off. Wean to extubate.
Remains in sinus rhythm. Continue aspirin and Plavix
Hemoglobin 14.4, platelet count 118
EKG with normal sinus rhythm and first-degree AV block.
Progress Note - Yoke Presser
Subjective
Date of Service: February 12, 2025
Intubated and sedated post procedure. Remains in sinus rhythm.
Objective
Labs:
02/12/25 16:13
02/12/25 11:43
Labs
Hgb 14.4 g/dL (13.0-18.0) 02/12/25 16:13
Hct 42.1 % (39.0-52.0) 02/12/25 16:13
Plt Count 118 10^3/uL (130-400) L D 02/12/25 16:13
PT 19.8 Sec (11.4-14.6) H 02/12/25 11:43
INR 1.66 02/12/25 11:43
APTT 31.1 Sec (23.4-35.0) 02/12/25 11:43
Sodium 137 mmol/L (135-145) 02/07/25 12:17
Potassium 4.6 mmol/L (3.5-5.1) 02/07/25 12:17
BUN 20 mg/dl (9-20) 02/12/25 11:43
Creatinine 0.8 mg/dL (0.7-1.3) 02/12/25 11:43
Glucose 105 mg/dl (70-99) H 02/12/25 11:43
Vital Signs and I&O:
Vital Signs
Temp Pulse Resp BP Pulse Ox
98.3 F 67 14 92/61 99
02/12/25 18:00 02/12/25 18:08 02/12/25 18:08 02/12/25 18:03 02/12/25 18:08
Vital Signs
Temp Pulse Resp BP Pulse Ox
98.3 F 67 14 92/61 99
02/12/25 18:00 02/12/25 18:08 02/12/25 18:08 02/12/25 18:03 02/12/25 18:08
Intake & Output
02/10/25 02/11/25 02/12/25 02/13/25
06:59 06:59 06:59 06:59
Intake Total 557.5 / 557.5
Output Total 960 / 960
Balance -402.5 / -402.5
Physical Exam
Physical Exam
GEN: No distress, on vent
HEENT: supple, anicteric, mmm, ET tube
LUNGS: scatt rhonchi
CV: Reg, S1/S2, 1/6 syst LSB, no rub
ABD: soft, BS+, NT/ND
EXT: No edema
NEURO: Gross non-focal
SKIN: sternotomy
[2025-02-12] MEDS: LR 250 ML IV ×2 (18:33→20:25)
[2025-02-12] MEDS: DILAUDID 0.25 MG IV (20:04)
[2025-02-12] MEDS: SENOKOT 8.6 MG PO (20:04)
[2025-02-12] MEDS: ROXICODONE 5 MG PO (20:05)
--- NOTE | 2025-02-12 20:30 | PTCARENOTE ---
Report received from JOE Corral. Walking rounds done. Pt awake,alert, calm. Speech clear. Oriented x 4. Pt on 4L/O2/NC. Sats 100%. BBS present. Diminished B anteriorly and B bases. CDB, IS encouraged. Pt in SR with multiple monomorphic PVCs. Gtts
include Dobutamine at 5 mcg/kg/min and Levophed at 1 mcg/min. Maintaining SBP 90-110 mmHG. A-line, PA and CVP waveforms with pulsatile ,waveforms. RIJ Page Yissel catheter at 55 cm. CI 1.98. Reported to FREIDA Sierra. LR 250 mls bolus given. Labs
drawn and sent. Pt with pericardial rub. CTs x 3, to -20 cm suction. Mediastinals x 2, L pleural x 1. Red drainage from each. Q1 hr CT output and prn recorded. AV wires. Pacing mode DDD, A-rate 35, mA 10, sens 0.4. V-rate 35, mA 10, sens 0.8. Normal
pulses to B radials, L DP. R DP weak. For wound assessments, see flowsheets. Belly soft, nontender. Hypoactive bs x 4. Crisostomo with clear, yellow urine. Q 1 hr output recorded. Glycemic protocol maintained.
Dilaudid 0.25 mg IV and Roxicodone 5 mg po given at ~ 2023. Ongoing plan of care.
[2025-02-12 20:52] LABS: Glucose - Point of Care 87 mg/dl (70-99)
[2025-02-12 20:54] LABS: B.E. -4.5 mmol/L; HCO3 21.1 mmol/L (21-28); O2 Saturation % 99.4 % (94-98); PCO2 40 mmHg (35-48); PO2 131 mmHg (83-108); Potassium 4.1 mMOL/L (3.5-5.1)
[2025-02-12 21:18] LABS: Magnesium 2.1 mg/dl (1.6-2.3)
[2025-02-12] MEDS: SODIUM BICARBONATE 50 MEQ IV (21:27)
--- NOTE | 2025-02-12 21:30 | PTCARENOTE ---
Dobutamine gtt decreased to 4 mcg/kg/min per provider order. Sodium Bicarb 50 meQ IV given per order. Will recheck labs and CI at 2300 per order.
[2025-02-12 21:41] LABS: Glucose - Point of Care 84 mg/dl (70-99)
[2025-02-12] MEDS: ZOFRAN 4 MG IV (22:52)
[2025-02-12 23:01] LABS: Glucose - Point of Care 93 mg/dl (70-99)
[2025-02-12 23:40] LABS: Glucose - Point of Care 87 mg/dl (70-99)
[2025-02-12 23:45] LABS: B.E. -4.5 mmol/L; HCO3 21.1 mmol/L (21-28); O2 Saturation % 99.6 % (94-98); PCO2 40 mmHg (35-48); PO2 132 mmHg (83-108); Potassium 4.3 mMOL/L (3.5-5.1)
[2025-02-13] VITALS (14 sets, daily range): BP systolic 98–135; BP diastolic 47–74; PULSE 102; O2SAT 96–98; BMI 28.1
[2025-02-13] MEDS: CALCIUM GLUCONATE 100 IV ×2 (00:31→21:20)
[2025-02-13] MEDS: SODIUM BICARBONATE 50 MEQ IV (00:31)
[2025-02-13] MEDS: TYLENOL 975 MG PO ×4 (00:32→22:05)
[2025-02-13] MEDS: NEURONTIN 100 MG PO ×4 (00:32→22:06)
[2025-02-13] MEDS: LIPITOR 80 MG PO ×2 (00:32→22:05)
[2025-02-13 00:58] LABS: Glucose - Point of Care 95 mg/dl (70-99)
--- NOTE | 2025-02-13 01:30 | PTCARENOTE ---
Lab results seen by PA. Ca Gluconate 2 GM IV given per order. Sodium Bicarbonate 50 meQ IV given per order. Repeat CI at 2316 is 2.76. Dobutamine gtt decreased to 3 mcg/kg/min. Pt with nausea, attempting to vomit. Zofran 4 mg IV given at 2252.
Pt repositioned in bed. Pt with sustained, elevated BP. Cardene gtt started per protocol at 0100 at 2.5 mg/hr. Goal BP 90-110 mm HG. PA states she will accept SBP < 120 mmHG ( and greater than/equal to 90 mmHG). Will obtain lab work and CI at ~ 0200.
[2025-02-13] MEDS: ANCEF 5 IV ×2 (02:30→10:01)
[2025-02-13 02:55] LABS: Glucose - Point of Care 98 mg/dl (70-99)
[2025-02-13 03:23] LABS: B.E. -2.0 mmol/L; HCO3 23.7 mmol/L (21-28); O2 Saturation % 99.4 % (94-98); PCO2 43 mmHg (35-48); PO2 115 mmHg (83-108); Potassium 4.2 mMOL/L (3.5-5.1)
[2025-02-13 03:36] LABS: Hematocrit 37.0 % (39.0-52.0); Hemoglobin 12.6 g/dL (13.0-18.0); Mean Corp Hgb Conc. 34.1 g/dL (33.0-37.0); Mean Corpuscular Volume 95.1 fL (80.0-94.0); Platelet Count 99 10^3/uL (130-400); Red Cell Dist. Width 12.2 % (11.5-14.5)
[2025-02-13 03:39] LABS: Blood Urea Nitrogen 27 mg/dl (9-20); Calcium 8.7 mg/dl (8.4-10.2); Carbon Dioxide 24 mmol/L (22-30); Chloride 107 mmol/L (98-107); Estimated Creatinine Clearance 54 ml/min; Glucose 98 mg/dl (70-99); Magnesium 2.0 mg/dl (1.6-2.3); Potassium 4.3 mmol/L (3.5-5.1); Sodium 138 mmol/L (135-145); eGFR > 60.00
--- NOTE | 2025-02-13 03:45 | ECGCV ---
FREIDA Vazquez notified of ECG critical value identified by electronic interpretation on ECG completed on 02/13/25, at 0330.
[2025-02-13 04:43] LABS: Glucose - Point of Care 105 mg/dl (70-99)
--- NOTE | 2025-02-13 04:55 | W.PN.CT ---
Today's Communication / Plan
-
-pod #1
-no complaints, pleasant, A&O x4
-nsr 60s-80s with frequent PACs and PVCs overnight. Discussed with Dr. Bassett- will start Amio drip
-tried to keep sbp 90-[address] Bassett, liberate sbp to 90-130 in am
-mVO2 83.5, CI 2.33, CO 4.54, SVR 951. Drips: Dobut weaned from 5 to 3, Insulin, Amio 0.5
-CT outputs: 2 meds 100/350, L pleur 80/175 in 12/24 hrs
-current meds (ASA, Plavix, Lipitor, Mg, Gabapentin, Protonix). Holding BB and Amio while on Dobut
-wean off Dobut as tolerated, then deline
-maintain Crisostomo while Dobut
-maintain [place], Cordis, pw
-encourage IS, OOB
Assessment / Plan
-
- mv-CAD - s/p CABG x3 (In situ GUSMAN to LAD, Ao to RSVG to OM, Ao to RSVG to RPDA); Left atrial appendage exclusion [35 mm device] by Dr. Bassett on 02/12/25, pod #1
- Intraop LAZARUS: LVEF preop was 30% with global hypokinesis. He had of severely dilated left atrium with no significant mitral valve insufficiency, surprisingly. Following surgery, his EF remained the same at 30 to 35% on 5 of Dobutrex. There were
no new regional wall motion abnormalities. At the conclusion of the case, he was in sinus rhythm in the 40s to 50s which was what he was at baseline.
- Multivessel coronary artery disease
- Acute on chronic ischemic cardiomyopathy with EF of 30% with recent history of EF of 45%
- Exertional angina equivalent
- Hyperlipidemia
- Hypertension
- Mantle cell lymphoma on chronic suppressive therapy (per his Oncologist, hold Calquence 7 days preop and 3-5 days postop)
- Osteoarthritis
- Mild cognitive disorder
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
- Acute postop thrombocytopenia
- Acute postop atelectasis
- Acute postop metabolic acidosis
- Acute postop hypovolemia with subsequent hypervolemia
- Suspected acute postop pericarditis/+ rub
Discussed patient care with: Nursing and Care Team
Subjective
-
Date of Service: February 13, 2025
Objective Data
-
PT 19.8 Sec (11.4-14.6) H 02/12/25 11:43
INR 1.66 02/12/25 11:43
APTT 31.1 Sec (23.4-35.0) 02/12/25 11:43
Vital Signs
Vital Signs
Temp Pulse Resp BP Pulse Ox
98.2 F 63 15 114/62 99
02/13/25 00:00 02/13/25 00:30 02/13/25 00:30 02/13/25 00:00 02/13/25 00:30
CT Intake/Output/Weight
02/12/25 02/12/25 02/13/25
06:59 18:59 06:59
Intake Total 557.5 / 994.0 436.5 / 994.0
Output Total 960 / 1280 320 / 1280
Balance -402.5 / -286.0 116.5 / -286.0
SaO2: 99
Physical Exam
-
General: Awake and AOx3
Cardiovascular: Regular rate & rhythm, No Murmurs and Rub
Respiratory: Decreased Breath Sounds
Sternum: Stable
Incision: Clean, Dry and Intact
Extremities: No Edema (1+ palpable DP on L and Dopplerable DP on R)
Abdomen: soft, nontender, nondistended, +decreased bowel sounds
Data Reviewed
-
Lab Results: Results Reviewed
Medications: Active Meds Reviewed
Chest X-Ray: Report Reviewed and Image Reviewed
ECG: Report Reviewed and Image Reviewed
[2025-02-13] MEDS: DILAUDID 0.25 MG IV (05:04)
[2025-02-13 06:34] LABS: Glucose - Point of Care 92 mg/dl (70-99)
[2025-02-13] MEDS: CORDARONE 259 MG IV (06:54)
--- NOTE | 2025-02-13 07:32 | PTCARENOTE ---
Cardene gtt off at 0204 due to low BP (101/43, MAP 59). Repeat CI 2.33 on Dobut 3 mcg. CI at 0450 is 2.53. Dobut decreased to 2 mcg/kg/min at 0620 per provider order. Labs drawn and sent. Ekg done as per last note. Dilaudid 0.25 mg IV given at
~0500. See MAR. Amiodarone gtt started per provider order at 0722. Pt currently SR, 60-70's, with PVCs. Discussed BP with PA. Accepting 90-130 mm HG systolic at this time. Report to JOE Corral this am.
[2025-02-13] MEDS: SENOKOT 8.6 MG PO ×2 (08:45→20:00)
[2025-02-13] MEDS: ZOLOFT 25 MG PO (08:45)
[2025-02-13] MEDS: MAGNESIUM OXIDE 400 MG PO ×2 (08:45→20:00)
[2025-02-13] MEDS: PROTONIX 40 MG PO (08:45)
[2025-02-13] MEDS: PLAVIX 75 MG PO (08:45)
[2025-02-13] MEDS: LOW STRENGTH ASPIRIN 81 MG PO (08:45)
--- NOTE | 2025-02-13 08:45 | PTCARENOTE ---
Assumed care of patient at 0700. Pt is awake, alert, and oriented. Minimal complaints of pain at this time. Pt remains SR with PVCs, HR 72. BP 118/53 MAP 73. PA 38/17, CVP 12, CO 4.79, CI 2.46, SVR 1002. Pulse oximetry 97% on room air. Pt achieving
1500 with IS, continued use encouraged. Mediastinal chest tubes x2 and left pleural chest tube in place to -20 suction, no sign of air leak or crepitus, drainage red in color. Pt tolerating PO. Crisostomo catheter remains in place, draining yellow urine.
Crisostomo care completed. Midsternal incision approximated with surgical adhesive, VAMP LINER. Right groin puncture intact, MARLYN. Right leg incision with bjorn wrap in place. Right IJ cordis intact with [place] at 55cm. Left radial Misti in place. Pt remains on
Insulin gtt per glycemic protocol. Currently Dobutamine at 1.5mcg/kg/min and Amio gtt at 1mcg/min.
[2025-02-13] MEDS: BACTROBAN 2% OINTMENT 1 APPLIC NASAL ×2 (08:46→20:00)
[2025-02-13 08:50] LABS: Glucose - Point of Care 94 mg/dl (70-99)
[2025-02-13] MEDS: COLCHICINE 0.3 MG PO (10:01)
--- NOTE | 2025-02-13 10:27 | W.PN.ANS.POP ---
Anesthesia Post Operative
- Anesthesia Post Op Note
Vital Signs Stable-See Nursing Note: Yes
Airway Patent: Yes
Adequate Pain Control: Yes
Change in Mental Status: No
Current Postoperative Nausea & Vomiting: No
Anesthesia Complications: No
General Anesthetic Recall: No
Unplanned Admission: No
Post Op Hydration Adequate: Yes
--- NOTE | 2025-02-13 11:00 | PTCARENOTE ---
Left pleural chest tubes d/c'd per order. Pt assisted OOB with cardiac rehab, tolerated well.
[2025-02-13 11:44] LABS: Glucose - Point of Care 118 mg/dl (70-99)
--- NOTE | 2025-02-13 12:39 | PN.DE.MGMTRT ---
Insulin Management
- -
02/13/2025 Diabetes Management Consult
79 year old male admitted 02/12 AM for CABG. PMH HLD, CAD, cardiomyopathy, HTN, L hip replacement,mantle cell lymphoma. Patient has A1C of 5.1%, no history of diabetes. cr 1.1, eGFR > 60.
POD 1 patient is awake alert and oriented oob in chair, able to discuss glucose control. Discussed possibility of starting SGLT-2 if cost effective. Patient currently receiving Critical Care glycemic protocol insulin infusion requiring .4 to 2
unit sof insulin per hour. Will continue insulin infusion today and prepare for transition in AM.
Discussed with nurse.
Will follow.
Diabetes History
- -
Pre-Admission Diabetes Regimen
02/13/25
02:44
Creatinine 1.1
Lab Results
Hemoglobin A1c 5.1 % (4.0-5.9) 02/07/25 12:18
Insulin Pump Settings
IP Diabetes Regimen
02/12/25 02/12/25 02/12/25
13:03 14:04 15:03
Glucose
POC Glucose 109 H 97 87
02/12/25 02/12/25 02/12/25
16:11 18:07 20:51
Glucose
POC Glucose 99 105 H 87
02/12/25 02/12/25 02/12/25
21:39 22:59 23:39
Glucose
POC Glucose 84 93 87
02/13/25 02/13/25 02/13/25
00:57 02:44 02:54
Glucose 98
POC Glucose 95 98
02/13/25 02/13/25 02/13/25
04:42 06:33 08:49
Glucose
POC Glucose 105 H 92 94
02/13/25
11:39
Glucose
POC Glucose 118 H
Meal type: Breakfast
Meal type: Dinner
Amount consumed: 100%
Patient Education
[2025-02-13] MEDS: NSS IV (12:53)
[2025-02-13 12:59] LABS: Glucose - Point of Care 108 mg/dl (70-99)
[2025-02-13] MEDS: LASIX 40 MG IV ×2 (12:59→17:36)
[2025-02-13] MEDS: FERRLECIT 110 MG IV (13:01)
--- NOTE | 2025-02-13 13:30 | PTCARENOTE ---
Pt tolerated being OOB in chair for the day. Pt remains SR with PVCs. HR 71, BP 122/49 MAP 70. Remains on room air, pulse oximetry 97%. Insulin gtt d/c'd per protocol. Pt received 40mg IV Lasix per order.
--- NOTE | 2025-02-13 15:00 | W.PN.INTV ---
Addendum entered and electronically signed by Molly Shultz MD 02/14/25 12:15:
02/14
- Patient transferred to telemetry status
- Consultative Sales Associate service will sign off, please call as needed
Original Note:
Today's Communication / Plan
Recommendations
- Wean dobutamine as tolerated
- Incentive spirometry
Assessment
-
Patient is a 79-year-old gentleman with coronary artery disease, s/p coronary artery bypass graft, left atrial appendage exclusion, POD # 1
Titrate off pressors per protocol, currently on dobutamine at 2, off Levophed. MAP of 75. Amiodarone infusion on going.
ECHO reviewed with mildly reduced ejection fraction
PA catheter readings reviewed, , mean 25
Management of chest tubes per primary service. No air leak.
Extubated now, 100% on 3 Ltr.
CXR without pneumothorax
Extubate per protocol
Maintain supplement oxygen as needed
No prior history of pulmonary disease
Prior PFTs reviewed, unremarkable
Can add nebulizers if needed
Aspiration precautions
Encouraged incentive spirometry, OOB/ambulation/early mobility
Advance diet as tolerated following extubation
GI prophylaxis: Protonix
Monitor critical I/O's
Crisostomo/chest tube output
Hb/platelets postoperatively, mild drift
Trend CBC for now
Can transfuse if indicated for Hb <7, plt <50 in surgical patients
DVT prophylaxis including SCDs
Insulin protocol initiated and ongoing
Transition to SQ/off as indicated per team
Other medical diagnoses:
- HFrEF, LVEF 30-35%
- Pulmonary nodules. 1-2 mm, RUL. Outpatient follow up with Pulmonary clinic, information added to discharge section.
- HTN, HLD
- H/o Smoking
- Mantle cell lymphoma
- CAD
- Mild cognitive deficit
Critical Care time 45 mins -- The patient is admitted for acute critical illness for the treatment of vital organ failure and/or prevention of further life-threatening conditions. Total care includes time spent in review of history, physical exam,
medications, hemodynamic/ventilator parameters, laboratory data, imaging and discussion with house staff, pharmacy, respiratory therapy, manager assurance, and nursing
Data:
Spirometry 01/2025: FEV1 2.70, 99% of predicted, FVC 105% predicted, FEV1/FVC of 70. Normal spirometry without evidence of obstruction or restriction.
C 01/2025: 1. Multivessel coronary artery disease with shelf llike 80% distal left main stenosis involving the origins of the LAD and circumflex and 100% chronically occluded mid RCA
2. Moderately reduced LV systolic function with an estimated ejection fraction of 30-35%
ECHO 12/2024: 1. Technically difficult study.
2. Normal left ventricular chamber size with mildly reduced left ventricular systolic function ejection fraction 40 to 45%. Basal to mid inferior and inferolateral akinesis.
3. Mild concentric left ventricular hypertrophy.
4. Mild mitral regurgitation.
5. Mild tricuspid regurgitation.
6. Compared to her previous echo from November 2015, EF was 50% at that time and there is now mild MR and TR.
CT Chest 01/2025: No acute pathology of the chest identified.
Severe atherosclerotic vascular disease. Mildly progressed.
Tiny solid right upper lobe pulmonary nodules. These are too small to be seen on prior PET/CT exam. The [facility] Pulmonary Nodule Advisory Board will be automatically informed of the findings.
Subjective Dataa
Subjective Data
Date of Service:
Date of Service: February 13, 2025
Subjective:
Comfortably sitting in bed, no acute distress
Review of Systems
Genitourinary: Other (no new symptoms reported. )
Objective Data
Data Reviewed
Vital Signs / I&O / Oxygen:
Vital Signs
Temp Pulse Resp BP Pulse Ox
98.7 F 72 16 104/74 97
02/13/25 14:00 02/13/25 14:00 02/13/25 14:00 02/13/25 09:00 02/13/25 14:00
Intake and Output
02/12/25 02/13/25 02/14/25
06:59 06:59 06:59
Intake Total 1306.6 / 1346.1 518.6 / 518.6
Output Total 1610 / 1645 520 / 520
Balance -303.4 / -298.9 -1.4 / -1.4
SaO2 [CPAP] 98
SaO2 [SIMV] 97
SaO2 97
Nasal Cannula flow liters per 3
minute
Physical Exam
General: Comfortable
HEENT: Normocephalic
Cardiovascular: S1-S2
Respiratory: Clear
GI: Soft and Non Distended
Neurology: Awake and Alert
Skin: Warm
Labs/Micro/Reports
Lab Data
02/13/25 02:44
02/13/25 02:44
Laboratory Results
02/12/25 02/12/25 02/13/25
20:32 23:17 02:44
pH 7.33 L 7.33 L 7.35
pCO2 40 40 43
pO2 131 H 132 H 115 H
HCO3 21.1 21.1 23.7
O2 Delivery Level
Microbiology
02/12/25 07:50 Urine Urine Culture - Final
NO GROWTH
--- NOTE | 2025-02-13 15:41 | CM ---
priced farxiga/jardiance with pts [facility] (#[id number]) he has not met his deductible this year-
Farxiga- tier 3- first month $489 (includes his deductible) then once deducible is met he pays 25% cost of med or $132/month
Jardiance $495 then $139
pt is aware that his deductible restarts in Feb. they are also aware that farxiga will go generic in may and they could use good rx at that time.
pt [facility] and was going to check into them filling farxiga. [facility] call to [facility]- team[facility] and am awaiting call back. pt is agreeable to paying for farxiga for the first month.
--- NOTE | 2025-02-13 16:35 | W.PN.CARDCBS ---
Addendum entered and electronically signed by Laly Montgomery MD 02/13/25 22:01:
I saw and examined the patient.
The Supervisor Residential's note was reviewed and I agree with the note.
Comment: Overall doing well, OOB in chair, in good spirits, joking
Vitals and labs reviewed. Creat 1.3 noted. On exam well appearing, oob in chair, sternotomy wound c/d/i, RR, normal S1 and S2, small pericardial rub, +swan in place, chest tubes in place, 1.5mcg DBE, warm ext
Reccs:
1. Cont wean off DBE. If stable off inortropes DC swan catheter
2. Wean chest tubes as drainage slows down.
3. On IV amiodarone for very frequent ventricular ectopy
4. Rpeat echo once off DBE
5. ISS, PT/OT
Laly Montgomery MD
Original Note:
Today's Communication / Plan
-
continue post op care
slow wean of dobut
IV amio for frequent ectopy
echo tomorrow vs Tuesday when off dobut
Impression / Plan
-
Assess:
CAD/ischemic Cardiomyopathy EF 30-40%
s/p CABG GUSMAN to LAD, saphenous vein graft to OM, saphenous vein graft to PDA, IRMA clip 02/12/25
Mantle cell lymphoma
Hypertension
Hyperlipidemia
Mild dementia
Echo 01/09/25:EF 40-45%, inf/inf lat akinesis, mild MR
Plan:
- s/p CABG GUSMAN to LAD, saphenous vein graft to OM, saphenous vein graft to PDA, IRMA clip 02/12/25
- EF has historically been in 30 to 40% range.
- Presently on dobutamine at 1.5, slowly weaning
- Plan to repeat echo tomorrow versus Tuesday once dobutamine is off to reassess EF
- Noted to have significant PVC/ventricular bigeminy burden overnight and was started on IV Amio gtt, presently at 0.5, continue. Patient asymptomatic. Lopressor and p.o. amiodarone presently on hold while on dobut
- Hemoglobin 12.6, platelets 99K. Continue aspirin, Plavix
- Diuresis as able
- Continue postop care
- d/w nursing. d/w at bedside
Progress Note - Instructional Support Services Director
Subjective
Date of Service: February 13, 2025
Reports some chest soreness. Denies significant shortness of breath.
Objective
Labs:
02/13/25 02:44
02/13/25 02:44
Labs
Hgb 12.6 g/dL (13.0-18.0) L 02/13/25 02:44
Hct 37.0 % (39.0-52.0) L 02/13/25 02:44
Plt Count 99 10^3/uL (130-400) L 02/13/25 02:44
PT 19.8 Sec (11.4-14.6) H 02/12/25 11:43
INR 1.66 02/12/25 11:43
APTT 31.1 Sec (23.4-35.0) 02/12/25 11:43
Sodium 138 mmol/L (135-145) 02/13/25 02:44
Potassium 4.3 mmol/L (3.5-5.1) 02/13/25 02:44
BUN 27 mg/dl (9-20) H 02/13/25 02:44
Creatinine 1.1 mg/dL (0.7-1.3) 02/13/25 02:44
Glucose 98 mg/dl (70-99) 02/13/25 02:44
Vital Signs and I&O:
Vital Signs
Temp Pulse Resp BP Pulse Ox
99 F 72 18 104/74 97
02/13/25 16:00 02/13/25 16:00 02/13/25 16:00 02/13/25 09:00 02/13/25 16:00
Vital Signs
Temp Pulse Resp BP Pulse Ox
99 F 72 18 104/74 97
02/13/25 16:00 02/13/25 16:00 02/13/25 16:00 02/13/25 09:00 02/13/25 16:00
Intake & Output
02/11/25 02/12/25 02/13/25 02/14/25
07:59 07:59 07:59 07:59
Intake Total 1346.1 / 1432.2 556.1 / 556.1
Output Total 1645 / 1715 660 / 660
Balance -298.9 / -282.8 -103.9 / -103.9
Physical Exam
Physical Exam
GEN: No distress, awake, alert, oriented x3. Sitting in chair
HEENT: supple, anicteric, mmm, eomi
LUNGS: Decreased B/L bases, no wheezes
CV: Reg iwth ectopy, S1/S2, no murmur
ABD: soft, BS+, NT/ND
EXT: No cyanosis, clubbing. trace edema of B/L LE
NEURO: Gross non-focal
SKIN: warm, pink, dry. No rash. sternotomy incision c/d/i. CT in place
[2025-02-13] MEDS: ROXICODONE 5 MG PO (16:53)
[2025-02-13] MEDS: FLEXBUMIN 50 IV (17:36)
--- NOTE | 2025-02-13 20:00 | PTCARENOTE ---
Assumed care of patient at 1900. Patient resting in bed at time of assessment. Patient is AOx4, follows commands appropriately, moves all extremities. Lung sounds are diminished in the bases, saO2 94% on RA, CTx2: 2xmeds draining serosang to one
atrium. Heart sounds are audible, patient is SR with frequent PVCs on the monitor, a rub is present on auscultation. Patient has A+V wires with DDI settings see worklist item for details. Patient has normal palpable pulses and no observable edema.
Patient reports poor appetite during day, +BS and romero catheter present draining clear yellow urine. Patient has sternal incision approx with surg adhesive VENEER DRIER TAILER, R groin puncture approx with surg adhesive VENEER DRIER TAILER, and RLE incisonx2 approx with surg
adhesive MARLYN. Patient has R IJ cordis with swan @55cm, L radial rodrick, and R arm 18G PIV. Patient currently on dobut@1.5 and Amio @0.5. VSS. Call almaraz within reach.
[2025-02-13 20:58] LABS: Blood Urea Nitrogen 33 mg/dl (9-20); Calcium 7.8 mg/dl (8.4-10.2); Carbon Dioxide 26 mmol/L (22-30); Chloride 100 mmol/L (98-107); Estimated Creatinine Clearance 45 ml/min; Glucose 163 mg/dl (70-99); Magnesium 1.9 mg/dl (1.6-2.3); Potassium 3.9 mmol/L (3.5-5.1); Sodium 131 mmol/L (135-145); eGFR 56.23
[2025-02-13] MEDS: ARICEPT 10 MG PO (22:05)
[2025-02-13] MEDS: KCL 50 IV (22:27)
[2025-02-13] MEDS: MAGNESIUM SULFATE 102 GRAMS IV (22:28)
[2025-02-14] VITALS (21 sets, daily range): BP systolic 93–149; BP diastolic 47–119; PULSE 70; O2SAT 94–95; BMI 28.5
--- NOTE | 2025-02-14 | PTCARENOTE ---
Patient reassessed. Patient reporting congestion, gas pain. Given mucinex and simethicone HS. Call almaraz within reach.
--- NOTE | 2025-02-14 | PTCARENOTE ---
Patient reassessed. Remains SR with PVCs on the monitor. Dobut tapered to 1. K, Ca, and Mag repleted.
[2025-02-14] MEDS: FLEXBUMIN 50 IV ×2 (02:05→08:31)
--- NOTE | 2025-02-14 03:48 | W.PN.CT ---
Today's Communication / Plan
-
-pod #2
-had 14 beat a-tach, frequent PVCs- asymptomatic
-drips: Amio 0.5, Dobut weaned from 1.5 to off at midnight. mVO2 59.4
-at 5 am: CI 2.18, SVR 976
-Echo today
-CT outputs: 2 meds 120/400 in 12/24 hrs
-diuresed with 40 iv Lasix x2 on 02/13. UO 1280/1870 in 12/24 hrs
-appeared dry this am with cvp 4-6, low BP- gave 250 LR
-follow Cr - 1.2 today (peak Cr 1.3 on 02/13 and 1.1 preop)
-cbc pending
-plans for Echo today if remains off Dobutamine
-holding BB and Amio while on Dobut
-encourage IS, OOB
Assessment / Plan
-
- mv-CAD - s/p CABG x3 (In situ GUSMAN to LAD, Ao to RSVG to OM, Ao to RSVG to RPDA); Left atrial appendage exclusion [35 mm device] by Dr. Bassett on 02/12/25, pod #2
- Intraop LAZARUS: LVEF preop was 30% with global hypokinesis. He had of severely dilated left atrium with no significant mitral valve insufficiency, surprisingly. Following surgery, his EF remained the same at 30 to 35% on 5 of Dobutrex. There were
no new regional wall motion abnormalities. At the conclusion of the case, he was in sinus rhythm in the 40s to 50s which was what he was at baseline.
- Multivessel coronary artery disease
- Acute on chronic ischemic cardiomyopathy with EF of 30% with recent history of EF of 45%
- Exertional angina equivalent
- Hyperlipidemia
- Hypertension
- Mantle cell lymphoma on chronic suppressive therapy (per his Oncologist, hold Calquence 7 days preop and 3-5 days postop)
- Osteoarthritis
- Mild cognitive disorder
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
- Acute postop thrombocytopenia
- Acute postop atelectasis
- Acute postop metabolic acidosis
- Acute postop hypovolemia with subsequent hypervolemia
- Suspected acute postop pericarditis/+ rub
- Acute postop frequent PVCs
- Acute postop 14 beat a-tach on 02/14
Discussed patient care with: Nursing and Care Team
Subjective
-
Date of Service: February 14, 2025
Objective Data
-
PT 19.8 Sec (11.4-14.6) H 02/12/25 11:43
INR 1.66 02/12/25 11:43
APTT 31.1 Sec (23.4-35.0) 02/12/25 11:43
Vital Signs
Vital Signs
Temp Pulse Resp BP Pulse Ox
98.9 F 65 19 135/62 93
02/14/25 03:00 02/14/25 03:30 02/14/25 03:30 02/13/25 22:12 02/14/25 03:30
CT Intake/Output/Weight
02/13/25 02/13/25 02/14/25
06:59 18:59 06:59
Intake Total 749.1 / 1346.1 852.6 / 1281.3 428.7 / 1281.3
Output Total 650 / 1645 885 / 2245 1360 / 2245
Balance 99.1 / -298.9 -32.4 / -963.7 -931.3 / -963.7
SaO2: 93
Physical Exam
-
General: Awake and AOx3
Cardiovascular: Regular rate & rhythm, No Murmurs and Rub
Respiratory: Decreased Breath Sounds
Sternum: Stable
Incision: Clean, Dry and Intact
Abdomen: soft, nontender, nondistended, +decreased bowel sounds
Extremities: No Edema (1+ palpable DP on L and Dopplerable DP on R)
Data Reviewed
-
Lab Results: Results Reviewed
Medications: Active Meds Reviewed
Chest X-Ray: Report Reviewed and Image Reviewed
ECG: Report Reviewed and Image Reviewed
[2025-02-14 03:49] LABS: Blood Urea Nitrogen 32 mg/dl (9-20); Calcium 8.5 mg/dl (8.4-10.2); Carbon Dioxide 27 mmol/L (22-30); Chloride 104 mmol/L (98-107); Estimated Creatinine Clearance 48 ml/min; Glucose 141 mg/dl (70-99); Magnesium 2.2 mg/dl (1.6-2.3); Potassium 4.2 mmol/L (3.5-5.1); Sodium 134 mmol/L (135-145); eGFR > 60.00
[2025-02-14] MEDS: LR 250 IV (04:20)
[2025-02-14 05:03] LABS: Hematocrit 33.6 % (39.0-52.0); Hemoglobin 11.3 g/dL (13.0-18.0); Mean Corp Hgb Conc. 33.6 g/dL (33.0-37.0); Mean Corpuscular Volume 95.7 fL (80.0-94.0); Platelet Count 93 10^3/uL (130-400); Red Cell Dist. Width 12.6 % (11.5-14.5)
[2025-02-14] MEDS: CORDARONE 259 MG IV (05:38)
[2025-02-14] MEDS: TYLENOL 975 MG PO ×3 (06:34→21:07)
--- NOTE | 2025-02-14 08:15 | PTCARENOTE ---
Assumed care of patient. Walking rounds completed with previous RN. Pt sitting up in the chair. Pt alert and oriented x4. Rates sternal pain 5/10, states he is comfortable. Denies shortness of breath and nausea. MEDINA with equal strength throughout.
SR with BBB and frequent PVCs on tele with rates in the 60s-70s. BP via rodrick 90s-110s/40s-50s. BP via cuff 93/57. +Rub. CI 3.23. PA pressures 30s/10s. CVP 6-8. Epicardial AV wires to back up, no pacing noted. POX 95% on RA. Lungs diminished in the
bases. Occasional productive cough noted with velazco sputum. IS encouraged-1500mL achieved. Mediastinal chest tubes x2 y-sited to 1 atrium to -20cm suction draining serosanguineous fluid. No air leaks, tidaling, crepitus, noted. Abdomen soft,
nontender. +BS. Pt reports passing gas. Tolerating diet. Crisostomo catheter intact draining adequate amounts of macie urine. Sternal incision approximated with ecchymosis, MANAGER PAYROLL. CT dressing CDI. Right groin puncture site approximated, MANAGER PAYROLL. Right SVG
harvest sites approximated with skin glue, MARLYN. Right IJ cordis with swan floated to 55cm. Left radial rodrick intact with appropriate waveform. Right forearm 18g PIV intact. See MAR for medication administration. See worklist for complete nursing
assessment. Plan of care reviewed and patient in agreement.
[2025-02-14] MEDS: BACTROBAN 2% OINTMENT 1 APPLIC NASAL ×2 (08:19→19:41)
[2025-02-14] MEDS: LOW STRENGTH ASPIRIN 81 MG PO (08:20)
[2025-02-14] MEDS: COLCHICINE 0.3 MG PO (08:20)
[2025-02-14] MEDS: PLAVIX 75 MG PO (08:20)
[2025-02-14] MEDS: REFRESH EYE DROPS (PF) 1 DROPS OPHTH ×3 (08:21→22:14)
[2025-02-14] MEDS: PROTONIX 40 MG PO (08:21)
[2025-02-14] MEDS: MAGNESIUM OXIDE 400 MG PO ×2 (08:21→19:40)
[2025-02-14] MEDS: ZOLOFT 25 MG PO (08:21)
[2025-02-14] MEDS: NEURONTIN 100 MG PO ×3 (08:21→21:07)
[2025-02-14] MEDS: SENOKOT 8.6 MG PO ×2 (08:21→19:40)
[2025-02-14] MEDS: LASIX 20 MG PO (08:31)
--- NOTE | 2025-02-14 09:15 | PTCARENOTE ---
Pt assisted back to bed. CT WASH RACK OPERATOR at bedside to pull epicardial AV wires. Q15 min vitals taking. Left radial rodrick and [place] d/c. Hemostasis achieved. New dressing applied to Right IJ cordis.
--- NOTE | 2025-02-14 10:30 | PTCARENOTE ---
No CT output. Per CT NEONATAL INTENSIVE CARE NURSE, ok to d/c CTs. New dressing applied, pt tolerated.
[2025-02-14] MEDS: NSS 500 IV (10:31)
--- NOTE | 2025-02-14 11:00 | PTCARENOTE ---
Pt reassessed. Crisostomo d/c, DTV 1700. SR with BBB with PVCs with rates in the 60s-70s. BP 133/54. POX 98%. Surgical sites stable. Cordis and PIV intact. Amio infusing. Pt ambulated in the [facility] with RN and Cardiac Rehab. Now sitting in the chair with
at bedside.
[2025-02-14] MEDS: FERRLECIT 110 MG IV (14:04)
--- NOTE | 2025-02-14 14:44 | W.PN.CARDCBS ---
Addendum entered and electronically signed by Teo Moore DO 02/14/25 14:59:
I saw and examined the patient.
The Notch Machine Operator's note was reviewed and I agree with the note.
Comment:
Plan:
Continue postop care
Recheck echo postop and off dobutamine
Remains on IV amiodarone with reduced PVC burden from yesterday
Consider resuming beta-brown and transition to oral amiodarone
Continue dual antiplatelet therapy
Diuresis as able
Discussed with nursing
Original Note:
Today's Communication / Plan
-
continue post op care
follow PVC burden
echo pending
Impression / Plan
-
Assess:
CAD/ischemic Cardiomyopathy EF 30-40%
s/p CABG GUSMAN to LAD, saphenous vein graft to OM, saphenous vein graft to PDA, IRMA clip 02/12/25
Mantle cell lymphoma
Hypertension
Hyperlipidemia
Mild dementia
Echo 01/09/25:EF 40-45%, inf/inf lat akinesis, mild MR
Plan:
- s/p CABG GUSMAN to LAD, saphenous vein graft to OM, saphenous vein graft to PDA, IRMA clip 02/12/25
- EF has historically been in 30 to 40% range. was on dobutamine, however was weaned off overnight. repeat echo today pending for reassessment of EF
- remains on IV amio gtt @0.5. PVC burden overall decreasing from yesterday on review of tele. as off dobut, would consider resuming BB/po amiodarone
- EKG 02/14 reviewed, with evidence of pericarditis. on colchicine. no significant pain reported by patient
- hgb 11.3. continue asa, plavix
- Diuresis as able
- Continue postop care
- d/w nursing
Progress Note - Client Services Representative
Subjective
Date of Service: February 14, 2025
denies significant pain, SOB
Objective
Labs:
02/14/25 03:18
02/14/25 03:18
Labs
Hgb 11.3 g/dL (13.0-18.0) L 02/14/25 03:18
Hct 33.6 % (39.0-52.0) L 02/14/25 03:18
Plt Count 93 10^3/uL (130-400) L 02/14/25 03:18
PT 19.8 Sec (11.4-14.6) H 02/12/25 11:43
INR 1.66 02/12/25 11:43
APTT 31.1 Sec (23.4-35.0) 02/12/25 11:43
Sodium 134 mmol/L (135-145) L 02/14/25 03:18
Potassium 4.2 mmol/L (3.5-5.1) 02/14/25 03:18
BUN 32 mg/dl (9-20) H 02/14/25 03:18
Creatinine 1.2 mg/dL (0.7-1.3) 02/14/25 03:18
Glucose 141 mg/dl (70-99) H 02/14/25 03:18
Vital Signs and I&O:
Vital Signs
Temp Pulse Resp BP Pulse Ox
98.2 F 74 18 133/54 98
02/14/25 11:00 02/14/25 13:00 02/14/25 11:00 02/14/25 11:17 02/14/25 11:15
Vital Signs
Temp Pulse Resp BP Pulse Ox
98.2 F 74 18 133/54 98
02/14/25 11:00 02/14/25 13:00 02/14/25 11:00 02/14/25 11:17 02/14/25 11:15
Intake & Output
02/12/25 02/13/25 02/14/25 02/15/25
07:59 07:59 07:59 07:59
Intake Total 1346.1 / 1432.2 1458.6 / 2005.3 713.5 / 713.5
Output Total 1645 / 1715 2340 / 2440 215 / 215
Balance -298.9 / -282.8 -881.4 / -434.7 498.5 / 498.5
Physical Exam
Physical Exam
GEN: No distress, awake, alert, oriented x3. Sitting in chair
HEENT: supple, anicteric, mmm, eomi
LUNGS: Few crackles B/L bases, no wheezes
CV: Reg, S1/S2, no murmur
ABD: soft, BS+, NT/ND
EXT: No cyanosis, clubbing. trace edema of B/L LE
NEURO: Gross non-focal
SKIN: warm, pink, dry. No rash. sternotomy incision c/d/i.
--- NOTE | 2025-02-14 16:00 | PTCARENOTE ---
Pt reassessed. Pt resting in the chair. Denies pain. SR BBB with PVCs rates in the 60s. BP 121/75. POX 96% on RA. Surgical sites stable. Pt urinated macie urine, bladder scanned for 27ml. Amio gtt continues to infuse. No other acute changes from
previous assessment.
[2025-02-14] MEDS: COREG 3.125 MG PO (19:41)
--- NOTE | 2025-02-14 19:54 | PTCARENOTE ---
Assumed care of patient from prior shift RN. report received, Pt OOB, sitting up in the chair. Pt alert and oriented x4. denies pain. MEDINA with equal strength throughout. NSR with BBB and frequent PVCs on monitor, heartrate 75 BP +Rub. POX 98% on
RA. Lungs clear and diminished in the bases. IS uses -1500mL achieved. Abdomen soft, nontender. +BS. +gas. Voiding with urinal yellow urine. Sternal incision approximated with ecchymosis, MARLYN. CT site dressing CDI. Right groin puncture site
approximated, PHYSICAL SCIENCE PROFESSOR. Right SVG sites approximated with skin glue, MARLYN. Right IJ cordis. Right FA 18g PIV intact. Patient was able to take medication without issue . See worklist for complete nursing assessment. Ambulated in hallway for down to IVU
and back.
[2025-02-14] MEDS: FLEXERIL 5 MG PO (21:06)
[2025-02-14] MEDS: LIPITOR 80 MG PO (21:06)
[2025-02-14] MEDS: PACERONE 200 MG PO (21:07)
[2025-02-14] MEDS: ARICEPT 10 MG PO (21:09)
--- NOTE | 2025-02-14 22:03 | PTCARENOTE ---
patient states having burning dry feeling in eyes saline drops used.
[2025-02-15] VITALS (7 sets, daily range): BP systolic 103–131; BP diastolic 60–81; PULSE 73; O2SAT 91–92; BMI 28.6
[2025-02-15] MEDS: CORDARONE 103 MG IV (00:06)
--- NOTE | 2025-02-15 00:07 | PTCARENOTE ---
patient climb over railing and got OOB to use urinal was confused as to how he got up and need to be reoriented, Afib on monitor, patient returned to bed, bed alarm on, amiodarone bolus given for a fib.
[2025-02-15 00:55] LABS: Glucose - Point of Care 135 mg/dl (70-99)
[2025-02-15] MEDS: CORDARONE 259 MG IV (03:10)
[2025-02-15 03:23] LABS: Hematocrit 29.8 % (39.0-52.0); Hemoglobin 10.0 g/dL (13.0-18.0); Mean Corp Hgb Conc. 33.6 g/dL (33.0-37.0); Mean Corpuscular Volume 96.1 fL (80.0-94.0); Platelet Count 75 10^3/uL (130-400); Red Cell Dist. Width 12.6 % (11.5-14.5)
--- NOTE | 2025-02-15 03:32 | PTCARENOTE ---
amino gtt restarted, Patient converted into sinus rythym at 323am. Patietn bradycardic, Amino gtt reduced to .5
[2025-02-15 03:43] LABS: Blood Urea Nitrogen 24 mg/dl (9-20); Calcium 8.2 mg/dl (8.4-10.2); Carbon Dioxide 30 mmol/L (22-30); Chloride 101 mmol/L (98-107); Estimated Creatinine Clearance 58 ml/min; Glucose 106 mg/dl (70-99); Magnesium 2.1 mg/dl (1.6-2.3); Potassium 3.6 mmol/L (3.5-5.1); Sodium 135 mmol/L (135-145); eGFR > 60.00
--- NOTE | 2025-02-15 05:40 | W.PN.CT ---
Today's Communication / Plan
-
-pod #3
-pt c/o intermittent b/l eye burning since last night 02/14, improved with artificial tears and NSS wash. Vision intact b/l. Denies any trauma. No discharge, rash, swelling or conjunctivitis b/l. Mild irritation with injection noted - continue nss
wash/tears
-walked x3 yesterday
-had brief episode of confusion overnight when got up to void by himself and wasn't able to recall how he got up. Pt was reoriented and A&O x4 once he was helped to bed by his nurse. Pt has hx of mild dementia, on Aricept. Suspect combination of
Gabapentin and Flexeril causing confusion - will hold both. Minimize narcotics. No focal neuro deficits. BG 135. BP 130/68, pOx 94%
-went into a-fib 100s-110s at 11:35 pm after getting up to void - tx with Amio bolus and drip- converted to NSR with PVCs ast 3:25 am
-pw was pulled 02/14
-follow platelets - 75K today (93-99K past 48 hrs and 120K preop)- put Plavix on hold this am.
-follow Qt on Amio, Zoloft, and Aricept. Qt/Qtc 462/465 ms
-abnormal ECG- no acute change, had Echo yesterday 02/14
-gave 40 KCL po for K 3.6
-got 20 po Lasix on 02/14 - UO 675/1230 in 12/24 hrs
-Echo 02/14 with EF 50-55%, mild MR, mild TR
-follow 2v-CXR today 02/15
-current meds (ASA, Plavix, Lipitor, Coreg 3.125 bid, Lasix 40 qd, Colchicine 0.3 qd, Amio, Aricept, Zoloft, Protonix). Holding Gabapentin, dcd Flexeril d/t confusion
-encourage OOB, ambulate
Assessment / Plan
-
- mv-CAD - s/p CABG x3 (In situ GUSMAN to LAD, Ao to RSVG to OM, Ao to RSVG to RPDA); Left atrial appendage exclusion [35 mm device] by Dr. Bassett on 02/12/25, pod #3
- Intraop LAZARUS: LVEF preop was 30% with global hypokinesis. He had of severely dilated left atrium with no significant mitral valve insufficiency, surprisingly. Following surgery, his EF remained the same at 30 to 35% on 5 of Dobutrex. There were
no new regional wall motion abnormalities. At the conclusion of the case, he was in sinus rhythm in the 40s to 50s which was what he was at baseline.
- Multivessel coronary artery disease
- Acute on chronic ischemic cardiomyopathy with EF of 30% with recent history of EF of 45%
- Exertional angina equivalent
- Hyperlipidemia
- Hypertension
- Mantle cell lymphoma on chronic suppressive therapy (per his Oncologist, hold Calquence 7 days preop and 3-5 days postop)
- Osteoarthritis
- Mild cognitive disorder
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
- Acute on chronic postop thrombocytopenia
- Acute postop atelectasis
- Acute postop metabolic acidosis
- Acute postop hypovolemia with subsequent hypervolemia
- Suspected acute postop pericarditis/+ rub
- Acute postop frequent PVCs
- Acute postop 14 beat a-tach on 02/14
- Acute postop a-fib 110s on 02/15- tx with Amio bolus and drip, Coreg
- Acute postop abnormal ECG-had Echo 02/14
- Echo 02/14/25:
1. LV Wall Motion: basal and mid inferior wall and basal and mid inferolateral wall are abnormal, as described below.
2. Ejection fraction is 50-55% by visual assessment.
3. Compared to a prior transthoracic echocardiogram study from 01/09/2025 no significant changes are seen.
Discussed patient care with: Nursing and Care Team
Subjective
-
Date of Service: February 15, 2025
Objective Data
-
PT 19.8 Sec (11.4-14.6) H 02/12/25 11:43
INR 1.66 02/12/25 11:43
APTT 31.1 Sec (23.4-35.0) 02/12/25 11:43
Vital Signs
Vital Signs
Temp Pulse Resp BP Pulse Ox
98.1 F 69 18 135/77 98
02/14/25 19:00 02/14/25 21:58 02/14/25 21:58 02/14/25 21:58 02/14/25 21:58
CT Intake/Output/Weight
02/14/25 02/14/25 02/15/25
06:59 18:59 06:59
Intake Total 608.8 / 1498.1 1150.3 / 1497.1 346.8 / 1497.1
Output Total 1490 / 2375 615 / 615
Balance -881.2 / -876.9 535.3 / 882.1 346.8 / 882.1
SaO2: 98
Physical Exam
-
General: Awake and AOx3
Cardiovascular: Regular rate & rhythm, No Murmurs and Rub
Respiratory: Decreased Breath Sounds
Sternum: Stable
Incision: Clean, Dry and Intact
Extremities: Other (trace edema b/l)
Abdomen: soft, nontender, nondistended, + bowel sounds
Data Reviewed
-
Lab Results: Results Reviewed
Medications: Active Meds Reviewed
Chest X-Ray: Report Reviewed and Image Reviewed
ECG: Report Reviewed and Image Reviewed
[2025-02-15] MEDS: KCL 40 MEQ PO (05:56)
[2025-02-15] MEDS: TYLENOL 975 MG PO (05:56)
--- NOTE | 2025-02-15 08:00 | PTCARENOTE ---
resumed care of patient from prev RN. walking rounds completed. in chair at time of assessment. AAOx3. SR/SB HR 60-70s. +pulses. +Rub. POX 97% on RA. IS -1500mL. +BS. BRP. All surgical sites c/d/i. Right IJ cordis and PIV intact. will continue to
monitor.
[2025-02-15] MEDS: COLCHICINE 0.3 MG PO (08:41)
[2025-02-15] MEDS: PROTONIX 40 MG PO (08:41)
[2025-02-15] MEDS: LASIX 40 MG PO (08:42)
[2025-02-15] MEDS: LOW STRENGTH ASPIRIN 81 MG PO (08:43)
[2025-02-15] MEDS: MAGNESIUM OXIDE 400 MG PO (08:43)
[2025-02-15] MEDS: SENOKOT 8.6 MG PO (08:43)
[2025-02-15] MEDS: COREG 3.125 MG PO (08:43)
[2025-02-15] MEDS: PACERONE 200 MG PO (08:43)
[2025-02-15] MEDS: ZOLOFT 25 MG PO (08:43)
[2025-02-15] MEDS: BACTROBAN 2% OINTMENT 1 APPLIC NASAL (08:44)
[2025-02-15] MEDS: NSS IV (08:44)
--- NOTE | 2025-02-15 12:31 | W.DCSUMMARY ---
Discharge Summary
Discharge Data
Date of Admission: 02/12/25
Date of Discharge: 02/15/25
Total time spent discharging patient (in min): 45
-
Pending Results: No
Hospital Course
Primary care physician:
Dr. Vizcarra
Outpatient outlet manager:
Dr. Brownlee
Inpatient consultants:
DCA, transformer shop supervisor
Procedures:
1. Coronary artery bypass grafting x 3 (In situ GUSMAN to LAD, Ao to RSVG to OM, Ao to RSVG to RPDA) and Left atrial appendage exclusion [35 mm device, serial #[id number]]
Primary Diagnosis:
1. Multivessel coronary artery disease
Secondary Diagnoses:
- Acute on chronic ischemic cardiomyopathy with EF of 30% with recent history of EF of 45%
- Exertional angina equivalent
- Hyperlipidemia
- Hypertension
- Mantle cell lymphoma on chronic suppressive therapy
- Osteoarthritis
- Mild cognitive disorder
HPI: 79-year-old male with recent had a decline in his left ventricular ejection fraction on a cardiac stress test. He has been experiencing worsening anginal cloven type symptoms. LHC revealed MVD and patient presented electively on 02/[address] Bassett.
Hospital course: Patient was electively admitted on 02/[address] Bassett. Postoperatively he returned to the CVICU on dobutamine, Cardene, insulin, and Precedex infusions. Precedex was weaned off and patient was extubated by 1620.
postoperative day 1 patient's pleural chest tube was removed he was started on colchicine for pericarditis, and dobutamine was weaned down. He was also diuresed with 40 mg of IV Lasix x 2. Patient was noted to have PVCs and was started on
IV Amio. On 02/14 postoperative day 2, dobutamine was weaned off early in the morning, epicardial wires were pulled and chest tubes were removed. Austell-Yissel catheter and arterial line was also removed. He was started on an oral Lasix regimen.
Repeat transthoracic echocardiogram showed an EF of 50 to 55%. On 02/15 postoperative day 3, he was noted to have 4 hours of atrial fibrillation and was given an amio bolus and drip. He converted back to sinus rhythm after 4 hours. After
discussion with cardiology it was decided that the patient will not be sent home on oral anticoagulation. Patient tolerated his Coreg, he was transitioned off the Amio drip and was resumed on an oral load (200mg BID for 2 weeks and then 200mg
daily). he will also be discharged with a one week course of lasix.
Home medication changes:
see below
Discharge Plan
-
Patient Disposition: Home (Routine Discharge)
Discharge Diagnosis/Procedures: CABG x 3, left atrial appendage clip (02/12/25)
Condition: Fair
Diet: Low Cholesterol, Low Sodium and Restrict fluids to 64 oz
Activity: No strenuous activity
Driving Restrictions: Not until seen by your Dr
Bathing Restrictions: OK to Shower
Blood Work: repeat CBC and BMP on tuesday
Other Services: Cardiac Rehab
Specialty Instructions: Weigh Daily- Call MD for wt gain/loss 3 lbs overnight/5 lbs in 1 week
Activity Restrictions/Additional Instructions:
ACTIVITY:
-No strenuous activity: no heavy lifting, pushing, pulling anything over 15 pounds for one month
-continue to use stairs as tolerated
DRIVING RESTRICTIONS:
-No driving for one month or until approved by your surgeon
WOUND CARE:
-Shower daily. Use soap & water.
-No lotions, creams or powders on incision area.
DIET:
-continue a low fat/low cholesterol diet.
-IF you are diabetic, continue carb controlled diet.
CARDIAC REHAB:
-Please make appointment to start in 5-6 weeks with your local hospital program. (See Cardiac Rehabilitation Discharge Booklet).
SPECIALTY INSTRUCTIONS:
-Weigh yourself daily. Call your physician for any weight gain/loss of 3 lbs overnight or 5 lbs in one week.
-REPORT any clicking noise or uneven appearance of your sternum to your surgeon immediately.
-If you smoke, you are instructed to quit. The [place] smoking hotline phone number is [phone]
Referrals:
CT Transitional Care Nurse [Outside]
Referral Note:
The Cardiothoracic Transitional Care Nurse will call you to set up a visit in 1-2 days.
[facility] [Outside] - 03/27/25 9:30 am
Referral Note: Cardiac Rehab Orientation appointment is on 03/27/25 (W) at 9:30 am
The Cardiac Rehab gym is located on the first floor of the [facility].
Molly Shultz MD [Active, Pulmonary Medicine] - in six weeks
Referral Note: Lung nodules.
Floyd Quach CRNP [Family Provider, Family Practice]
Agnes Jin PA-C [Specified Professional Personl, Cardiology] - 03/25/25 11:00 am
Min Bassett MD [Active, Cardiac Surgery] - 03/18/25 2:00 pm
Additional Discharge Medication Instructions: Please take amiodarone 200mg PO twice a day for 14 days and then 200mg daily.
please weigh yourself everyday and take your lasix. After 7 days continue to weigh yourself every and if you have weight gain >3 pounds overnight take 40mg of lasix and call our office.
Please take your colchicine for 30 days total and then STOP
DO NOT START YOUR PLAVIX UNTIL DIRECTED BY A MEDICAL PROFESSIONAL
Prescriptions:
New
furosemide 40 mg Tablet
40 mg PO DAILY Qty: 30 0RF
Rx Instructions:
Please take for 7 days and then for weight gain >3lbs overnight
acetaminophen 325 mg Tablet
650 mg PO Q4HPRN PRN (Reason: mild pain,headache,temp >101F ) Qty: 0 0RF
amiodarone [Pacerone] 200 mg Tablet
200 mg PO BID Qty: 90 0RF
clopidogrel 75 mg Tablet
75 mg PO DAILY Qty: 30 0RF
colchicine 0.6 mg Tablet
0.3 mg PO DAILY Qty: 30 0RF
oxycodone 5 mg Tablet
2.5 mg PO Q4HPRN PRN (Reason: moderate to severe pain) Qty: 10 0RF
pantoprazole 40 mg Tablet,Delayed Release (Dr/Ec)
40 mg PO DAILY Qty: 30 0RF
potassium chloride [Klor-Con 10] 10 mEq tablet extended release
20 meq PO DAILY Qty: 7 0RF
Continued
atorvastatin 80 mg Tablet
80 mg PO HS
carvedilol 3.125 mg Tablet
3.125 mg PO BID
zinc acetate 50 mg (zinc) Capsule
50 mg PO HS
donepezil 10 mg Tablet
10 mg PO HS
cholecalciferol (vitamin D3) [Vitamin D3] 25 mcg (1,000 unit) Tablet
25 mcg PO DAILY
Calquence (acalabrutinib mal) 100 mg Tablet
100 mg PO DAILY
cetirizine [Zyrtec] 10 mg Tablet
10 mg PO HS
sertraline 25 mg Tablet
25 mg PO DAILY
mecobalamin (vitamin B12) [B12 Active] 1,000 mcg Tablet,Chewable
1,000 mcg PO HS
thiamine HCl (vitamin B1)
1 tab PO DAILY
aspirin 81 mg tablet,delayed release (DR/EC)
81 mg PO DAILY
Discontinued
valsartan 40 mg Tablet
40 mg PO DAILY
acetaminophen 650 mg Tablet Extended Release
650 - 1,300 mg PO Q12H PRN (Reason: pain)
vitamin K2
1 tab PO DAILY
Discharge Orders:
Discharge Patient (As Directed); Ordered 02/15/25
Ordered By: Alida Fitzpatrick
Care Plan Goals
Care Plan Goals:
Problem: Readiness for enhanced knowledge related to diagnosis and treatment plan
Goal: Understand your diagnosis and treatment plan needs, including medications if applicable.
Instructions: Know your diagnosis, underlying causes and treatment plan options, including medications if applicable. Consult with your health care team to learn about your diagnosis and treatment plan, including medications if applicable.
Discharge Date and Time
Print Language: VIET[place]ESE
--- NOTE | 2025-02-15 13:05 | W.PN.CARDCBS ---
Addendum entered and electronically signed by Wilfrid Brownlee MD 02/15/25 17:16:
I saw and examined the patient.
The Pulverizer Feeder's note was reviewed and I agree with the note.
Comment:
GEN: No distress, awake, Ox3
HEENT: supple, anicteric, mmm
LUNGS: CTA, no wheezes/rales
CV: Reg, S1/S2, 1/6 syst LSB, no gallop
ABD: soft, BS+, NT/ND
EXT: No edema
NEURO: Gross non-focal
SKIN: sternotomy
Plan:
Overall looks good. Remains in sinus rhythm. Continue amiodarone and carvedilol.
Continue aspirin. Hold Plavix with thrombocytopenia. Repeat CBC in 1 week.
Will consider adding lisinopril as outpatient. Follow blood pressure.
Stable for discharge
Original Note:
Today's Communication / Plan
-
For DC today
repeat blood work early next week. On aspirin, holding Plavix
In sinus rhythm at present. Continue amiodarone, Coreg
Uptitration of GDMT as blood pressure allows as an outpatient
Outpatient cardiac follow-up arranged
Impression / Plan
-
Primary Cab Supervisor: Dr. Brownlee
Assessment:
CAD/ischemic Cardiomyopathy EF 30-40%
s/p CABG GUSMAN to LAD, saphenous vein graft to OM, saphenous vein graft to PDA, IRMA clip 02/12/25
Mantle cell lymphoma
Hypertension
Hyperlipidemia
Mild dementia
Echo 01/09/25:EF 40-45%, inf/inf lat akinesis, mild MR
Plan:
- s/p CABG GUSMAN to LAD, saphenous vein graft to OM, saphenous vein graft to PDA, IRMA clip 02/12/25
- EF has historically been in 30 to 40% range. was on dobutamine, however was weaned off overnight.
- repeat echo from 02/14 with EF stable at 40-45%
- Required IV Amio earlier in admission for PVCs. Went into A-fib overnight, spontaneously converted to sinus rhythm around 3:30 AM and has maintained sinus since that time. Also had 11 beat run of NSVT around 6:30 AM. Would plan for p.o. Amio
upon discharge in addition to coreg
- GDMT of CM as able, uptitrate as OP
- EKG 02/14 reviewed, with evidence of pericarditis. on colchicine. no significant pain reported by patient
- hgb 10 and plts down to 75K. continue asa, holding plavix. Repeat labs early next week. holding off on OAC at present, if recurs with atrial arrhythmia, would start
- Diuresis as able
- Continue postop care
- Outpatient cardiac follow-up arranged
- Plan for discharge to home today per CT surgery
- d/w nursing, CT surg SCIENTIFIC INVESTIGATOR
Progress Note - Cab Supervisor
Subjective
Date of Service: February 15, 2025
Feeling well. Planned for discharge
Objective
Labs:
02/15/25 02:59
02/15/25 02:59
Labs
Hgb 10.0 g/dL (13.0-18.0) L 02/15/25 02:59
Hct 29.8 % (39.0-52.0) L 02/15/25 02:59
Plt Count 75 10^3/uL (130-400) L 02/15/25 02:59
PT 19.8 Sec (11.4-14.6) H 02/12/25 11:43
INR 1.66 02/12/25 11:43
APTT 31.1 Sec (23.4-35.0) 02/12/25 11:43
Sodium 135 mmol/L (135-145) 02/15/25 02:59
Potassium 3.6 mmol/L (3.5-5.1) 02/15/25 02:59
BUN 24 mg/dl (9-20) H 02/15/25 02:59
Creatinine 1.0 mg/dL (0.7-1.3) 02/15/25 02:59
Glucose 106 mg/dl (70-99) H 02/15/25 02:59
Vital Signs and I&O:
Vital Signs
Temp Pulse Resp BP Pulse Ox
98 F 64 18 131/67 97
02/15/25 12:00 02/15/25 12:00 02/15/25 12:00 02/15/25 10:13 02/15/25 12:00
Vital Signs
Temp Pulse Resp BP Pulse Ox
98 F 64 18 131/67 97
02/15/25 12:00 02/15/25 12:00 02/15/25 12:00 02/15/25 10:13 02/15/25 12:00
Intake & Output
02/13/25 02/14/25 02/15/25 02/16/25
07:59 07:59 07:59 07:59
Intake Total 1346.1 / 1432.2 1458.6 / 2005.3 1817.0 / 2083.7 286.7 / 286.7
Output Total 1645 / 1715 2340 / 2440 1690 / 1690
Balance -298.9 / -282.8 -881.4 / -434.7 127.0 / 393.7 286.7 / 286.7
Physical Exam
Physical Exam
GEN: No distress, awake, alert, oriented x3. Sitting in chair
HEENT: supple, anicteric, mmm, EOMI
LUNGS: CTA bilaterally, no wheezes/rales
CV: Reg, S1/S2, no murmur
ABD: soft, BS+, NT/ND
EXT: No cyanosis, clubbing. Trace edema of bilateral lower extremity
NEURO: Gross non-focal
SKIN: Warm, pink, dry. No rash
--- NOTE | 2025-02-15 14:22 | PTCARENOTE ---
showered. walked halls x2. d/c order received and went over all instructions with patient and his at bedside. answered all questions. taken via wheelchair out.
[2025-02-15] MEDS: TYLENOL PO (15:33)
== END 2025-02-15 13:55 | disposition home or self-care (01) | DRG 235 ==
LOC: CVICU 05:08
PROVIDERS: Anesthesiology; Nurse Practitioner; Physician Assistant Medical; ADMITTING PHYSICIAN Thoracic Surgery (Cardiothoracic Vascular Surgery); CONSULT PHYSICIAN Internal Medicine; FAMILY PHYSICIAN Nurse Practitioner Family
PROC: 02100Z9 Bypass Coronary Artery, One Artery from Left Internal Mammary, Open Approach (ICD-10-PCS; 2025-02-12)
PROC: B24BZZ4 Ultrasonography of Heart with Aorta, Transesophageal (ICD-10-PCS; 2025-02-12)
PROC: 5A1221Z Performance of Cardiac Output, Continuous (ICD-10-PCS; 2025-02-12)
PROC: 06BP4ZZ Excision of Right Saphenous Vein, Percutaneous Endoscopic Approach (ICD-10-PCS; 2025-02-12)
PROC: 02L70CK Occlusion of Left Atrial Appendage with Extraluminal Device, Open Approach (ICD-10-PCS; 2025-02-12)
PROC: 021109W Bypass Coronary Artery, Two Arteries from Aorta with Autologous Venous Tissue, Open Approach (ICD-10-PCS; 2025-02-12)
DX: I25.118 Atherosclerotic heart disease of native coronary artery with other forms of angina pectoris (principal); I50.23 Acute on chronic systolic (congestive) heart failure; C83.10 Mantle cell lymphoma, unspecified site; D62 Acute posthemorrhagic anemia; J98.11 Atelectasis; E87.21 Acute metabolic acidosis; I30.8 Other forms of acute pericarditis; F03.90 Unspecified dementia, unspecified severity, without behavioral disturbance, psychotic disturbance, mood disturbance, and anxiety; I25.5 Ischemic cardiomyopathy; E78.5 Hyperlipidemia, unspecified; I11.0 Hypertensive heart disease with heart failure; I25.82 Chronic total occlusion of coronary artery; M19.90 Unspecified osteoarthritis, unspecified site; F41.9 Anxiety disorder, unspecified; R91.1 Solitary pulmonary nodule; I49.3 Ventricular premature depolarization; I48.91 Unspecified atrial fibrillation; D69.59 Other secondary thrombocytopenia; E86.1 Hypovolemia; R00.1 Bradycardia, unspecified; I44.0 Atrioventricular block, first degree; Z79.82 Long term (current) use of aspirin; Z79.899 Other long term (current) drug therapy; Z82.49 Family history of ischemic heart disease and other diseases of the circulatory system; Z87.891 Personal history of nicotine dependence
CPT/HCPCS: 36415; 71045; 71250; 80048; 80053; 81003; 81015; 82248; 82330; 82565; 82805; 82810; 82947; 82962; 83036; 83735; 84132; 84302; 84520; 85014; 85018; 85025; 85027; 85049; 85610; 85730; 86850; 86900; 86901; 86920; 87070; 87086; 93005; 93308; 93312; 93320; 93321; 93325; 93880; 94002; 94010; J0282; J1250; J2916; P9047

== ENCOUNTER → 2025-02-18 09:04 | Outpatient (REF) | payer MEDICARE, OTHER, SELFPAY ==
[2025-02-18 10:04] LABS: Hematocrit 33.4 % (39.0-52.0); Hemoglobin 11.2 g/dL (13.0-18.0); Mean Corp Hgb Conc. 33.5 g/dL (33.0-37.0); Mean Corpuscular Volume 98.5 fL (80.0-94.0); Nucleated Red Blood Cells % 0 % (-); Platelet Count 153 10^3/uL (130-400); Red Cell Dist. Width 12.3 % (11.5-14.5)
[2025-02-18 11:17] LABS: ALT (SGPT) 26 U/L (0-50); AST (SGOT) 33 U/L (17-59); Albumin 3.5 g/dl (3.5-5.0); Alkaline Phosphatase 66 U/L (38-126); Blood Urea Nitrogen 22 mg/dl (9-20); Calcium 8.7 mg/dl (8.4-10.2); Carbon Dioxide 29 mmol/L (22-30); Chloride 103 mmol/L (98-107); Glucose 112 mg/dl (70-99); Potassium 3.7 mmol/L (3.5-5.1); Sodium 137 mmol/L (135-145); Total Protein 5.7 g/dl (6.3-8.2); Uric Acid 4.9 mg/dl (3.5-8.5); eGFR > 60.00
== END ==
LOC: REG 09:04
PROVIDERS: ATTENDING PHYSICIAN Internal Medicine; FAMILY PHYSICIAN Nurse Practitioner Family; REFERRING PHYSICIAN Thoracic Surgery (Cardiothoracic Vascular Surgery)
DX: E86.1 Hypovolemia (principal); D69.6 Thrombocytopenia, unspecified; C83.18 Mantle cell lymphoma, lymph nodes of multiple sites
CPT/HCPCS: 36415; 80053; 84550; 85025